=== PATIENT | male | born 1940 | race Caucasian/White ===

== ENCOUNTER 2018-06-23 12:09 | Inpatient (IN) | payer MEDICARE, BC ==
--- OUTSIDE RECORDS SUMMARY | 2018-06-23 12:29 | XMS REPORT | Continuity of Care Document ---
:1940 External Reference #:[id number] Author Name Arturo Brooks M.D. Address [address] [facility] [address] [place] [address] Care Team Providers Name Role Phone HCP/LW on file Primary Care Physician Unavailable Payers Type Date Identification Numbers Payment Provider Subscriber Effective: Policy Number: [id number] [facility] Isaías Rodriguez 2014 Services PayID: [id number] [address] [place] [address] Policy Number: [id number] [place] Isaías Rodriguez PayID: [id number] [address] [place] [address] Advance Directives Description No Information Available Problems Date Description Provider Status Onset: 07/26/2011 Disorder of lipid metabolism Arturo Brooks M.D. Active Onset: 07/26/2011 Impaired fasting glycaemia Arturo Brooks M.D. Active Family History Date Family Member(s) Problem(s) Comments General 1 brother of Brain tumor (Glioblastoma), 1 in MVA, 1 sister w/ CP. 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 [employer] Tobacco Use Reviewed: 10/06/17 Denies Cigarette Use Smoking Status Reviewed: 10/06/17 Denies Cigarette Use ETOH Use Occasionally consumes alcohol Tobacco Use Start: Unknown Non Smoker Exercise Exercises regularly walks 30-40min ~4x/wk; Type/Frequency stays active Allergies, Adverse Reactions, Alerts Description No Known Drug Allergies Medications Medication Date Status Form Strength Qnty SIG Indications Ordering Provider Asp 10/05/ Active Tablets 81mg 0tabs 1 Tab qd To Unknown 2017 Prevent A Stroke Tamsulosin 06/28/ Active Capsules 0.4mg 1 pill daily Aldo, HCL 2016 1/2 hour Clarence, after same MD meal each day; for enlarged prostate Shingrix 10/06/ Hx Suspension 50mcg 2units administer 2 Z00.00 Cecilia, 2017 - Rec doses as Arturo 01/14Pedro gonzalez M.D. 2018 per cdc guidelines Fish Oil 07/22/ Hx Capsules 1200mg 1 qd Cecilia, 2011 - Arturo 07/07/ Mady 2015 Flexeril 07/15/ Hx Tablets 10mg 50tabs 1/2-1 po tid 724.2 Cecilia, 2010 - prn Arturo 07/23/ Mady 2011 Hydrocodone/ 07/15/ Hx Tablets 5-325mg 60tabs 1-2 po q4h 724.2 Silcoff, Acetaminophe 2010 - prn for pain radha Morris 07/23/ Mady 2012 729.5 PT For L Leg Pain; 06/30/2010 - Hx please 729.5 Silcoff, Suspected Lumbar 06/10/2013 evaluate and Mady Morris Radiculopathy treat, instruct in hep Lotrisone 08/15/2008 - Hx Cream 45gm apply to 110.5 Benito, 07/09/2009 affected area Ellen JIM bid x up to 2 weeks. if not effective let me know Multi-Vitamins/Iro 07/26/2007 - Hx Tablets 1 PO qd malvin garcia 07/07/2015 Doxycycline 07/26/2007 - Hx Capsules 100mg 34ca 1 po q day. 084.6 tonjapack Hyclate 07/09/2009 ps please start 2 days before leaving on trip and continue for 28 days after returning. Ferrous Sulfate 11/26/2005 - Hx Tablets 325mg 120t 1 PO qd 285.9 klepack 07/26/2007 abs Flexeril 06/09/2005 - Hx Tablets 10mg 30ta 1/2-1 PO tid 724.2 [facility] 06/30/2010 bs DO Not Operate Heavy Equipment While On Meds Wrist Splint 02/22/2005 - Hx 1uni for right 782.0 Silcoff, 07/09/2009 ts hand Mady Morris dx: carpal tunnel syndrome Medications Administered in Office Medication Date Status Form Strength Qnty SIG Indications Ordering Provider H1N1 Swine Flu Administered Injection Silcoff, Vaccine 010 Mady Morris Immunizations CPT Code Status Date Vaccine Lot # [id number] Given 05/05/2018 Influenza Vaccine, Inactivated, Subunit, Adjuvanted, For Intrmusc 87893 Given 05/05/2018 Influenza Vaccine, Inactivated, Subunit, Adjuvanted, For Intrmusc 58411 Given 04/06/2017 Influenza Vaccine Split Virus Preservative Free Im Use 44677 Given 07/08/2015 Prevnar 13 [id number] 68066 Given 06/11/2013 Pneumococcal Immunization [id number] 14577 Given 06/11/2013 Adacel or Boostrix, TDaP [id number] 09278 Given 04/19/2011 Flu, Split Virus [id number] 98450 Given 07/26/2007 Zostavax [id number] 29983 Given 10/02/2006 Td Immunization 23321 Given 04/15/2005 Pneumococcal Immunization Vital Signs Date Vital Result Comment 06/19/2018 3:07pm BP Systolic 144 mmHg BP Diastolic 78 mmHg Heart Rate 71 /min 105 after ambulation Respiratory Rate 14 /min not laboured O2 % BldC Oximetry 96 % 97% after ambulation Height 68 inches 5'8" Weight 181.00 lb BMI (Body Mass Index) 27.5 kg/m2 04/12/2018 11:51am BP Systolic 108 mmHg BP Diastolic 60 mmHg Body Temperature 98.3 F 03/29/2018 11:11am BP Systolic 112 mmHg BP Diastolic 70 mmHg 03/14/2018 3:04pm BP Systolic 110 mmHg BP Diastolic 60 mmHg Weight 180.00 lb W/Shoes 10/06/2017 8:40am BP Systolic 104 mmHg BP Diastolic 56 mmHg Heart Rate 72 /min reg Respiratory Rate 12 /min not laboured Height 68.25 inches 5'8.25" Weight 181.00 lb BMI (Body Mass Index) 27.3 kg/m2 06/29/2017 10:55am BP Systolic 125 mmHg per nurse BP Diastolic 78 mmHg per nurse BP Systolic Recheck 140 mmHg R arm; 140/80 L arm BP Diastolic Recheck 74 mmHg R arm; 140/80 L arm Height 68.75 inches 5'8.75" with shoes Weight 183.00 lb with shoes BMI (Body Mass Index) 27.2 kg/m2 07/21/2016 9:49am BP Systolic 120 mmHg BP Diastolic 70 mmHg Height 68 inches 5'8" Weight 177.00 lb BMI (Body Mass Index) 26.9 kg/m2 07/08/2015 10:37am BP Systolic 118 mmHg BP Diastolic 70 mmHg Heart Rate 70 /min reg Respiratory Rate 12 /min not laboured Height 68 inches 5'8" Weight 177.00 lb BMI (Body Mass Index) 26.9 kg/m2 06/11/2013 9:44am BP Systolic 100 mmHg BP Diastolic 72 mmHg Heart Rate 68 /min reg Respiratory Rate 12 /min not laboured Height 68 inches 5'8" Weight 174.00 lb BMI (Body Mass Index) 26.5 kg/m2 07/26/2011 2:11pm BP Systolic 110 mmHg BP Diastolic 60 mmHg Heart Rate 66 /min reg Respiratory Rate 12 /min not laboured Height 68.50 inches 5'8.50" Weight 178.00 lb BMI (Body Mass Index) 26.7 kg/m2 Last Menstrual Period 0 06/30/2010 4:03pm BP Systolic 118 mmHg BP Diastolic 76 mmHg Height 68.25 inches 5'8.25" Weight 176.00 lb BMI (Body Mass Index) 26.6 kg/m2 Last Menstrual Period 0 07/09/2009 9:55am BP Systolic 118 mmHg BP Diastolic 66 mmHg Height 68.50 inches 5'8.50" Weight 180.00 lb BMI (Body Mass Index) 27.0 kg/m2 08/15/2008 5:15pm BP Systolic 100 mmHg BP Diastolic 64 mmHg Body Temperature 98.2 F Weight 175.00 lb 07/26/2007 10:23am Respiratory Rate 14 /min Height 68.6 inches 5'8.60" 07/26/2007 10:06am BP Systolic 120 mmHg BP Diastolic 70 mmHg Respiratory Rate 172 /min Height 68.6 inches 5'8.60" Weight 172.00 lb BMI (Body Mass Index) 25.7 kg/m2 11/26/2005 9:34am BP Systolic 104 mmHg BP Diastolic 62 mmHg Height 68.6 inches 5'8.60" Weight 170.50 lb BMI (Body Mass Index) 25.5 kg/m2 11/01/2005 1:21pm BP Systolic 114 mmHg BP Diastolic 58 mmHg Height 68.6 inches 5'8.60" Weight 174.00 lb BMI (Body Mass Index) 26.0 kg/m2 06/09/2005 3:13pm BP Systolic 120 mmHg BP Diastolic 76 mmHg Height 68.6 inches 5'8.60" Weight 176.00 lb BMI (Body Mass Index) 26.3 kg/m2 04/15/2005 10:35am BP Systolic 100 mmHg BP Diastolic 60 mmHg Height 68.6 inches 5'8.60" Weight 173.00 lb BMI (Body Mass Index) 25.8 kg/m2 02/22/2005 11:28am BP Systolic 100 mmHg BP Diastolic 54 mmHg Height 68.6 inches 5'8.60" Weight 171.00 lb BMI (Body Mass Index) 25.5 kg/m2 04/13/2004 3:21pm BP Systolic 110 mmHg BP Diastolic 70 mmHg Heart Rate 68 /min reg Height 68.6 inches 5'8.60" Weight 168.00 lb BMI (Body Mass Index) 25.1 kg/m2 Results Test Date Facility Test Result H/L Range Note Laboratory test 05/05/2018 [facility] PSA Diagnostic 1.452 ng/mL 0- 4.0 1 finding [phone] Laboratory test 03/30/2018 [facility] Surgical SEE RESULT 2 finding [phone] Pathology BELOW Laboratory test 03/14/2018 [facility] SEE RESULT 3 finding [phone] Pathology BELOW Laboratory test 10/06/2017 In House Hemoglobin A1c 5.3 finding CBC Auto Diff 10/03/2017 [facility] White Blood 2.9 10^3/uL Low 3.5- 10.8 4 [phone] Count Red Blood Count 3.84 10^6/uL Low 4.0-5.4 Hemoglobin 12.4 g/dL Low 14.0-18.0 Hematocrit 36 % Low 42-52 Mean Corpuscular Volume 94 fL N 80-94 Mean Corpuscular Hemoglobin 32 pg High 27-31 Mean Corpuscular HGB Conc 35 g/dL N 31-36 Red Cell Distribution Width 14 % N 10.5-15 Platelet Count 214 10^3/uL N 150-450 Mean Platelet Volume 8.5 um3 N 7.4-10.4 Abs Neutrophils 1.6 10^3/uL N 1.5-7.7 Abs Lymphocytes 0.8 10^3/uL Low 1.0-4.8 Abs Monocytes 0.4 10^3/uL N 0-0.8 Abs Eosinophils 0.1 10^3/uL N 0-0.6 Abs Basophils 0 10^3/uL N 0-0.2 Abs Nucleated RBC 0 10^3/uL Granulocyte % 56.1 % N 38-83 Lymphocyte % 26.2 % N 25-47 Monocyte % 12.9 % High 0-7 Eosinophil % 3.9 % N 0-6 Basophil % 0.9 % N 0-2 Nucleated Red Blood Cells % 0 Basic Metabolic Panel 10/03/2017 [facility] Sodium 140 mmol/L N 139- 145 [phone] Potassium 4.3 mmol/L N 3.5-5.0 Chloride 108 mmol/L N 101-111 Co2 Carbon Dioxide 28 mmol/L N 22-32 Anion Gap 4 mmol/L N 2-11 Glucose 98 mg/dL N 70-100 Blood Urea Nitrogen 19 mg/dL N 6-24 Creatinine 0.93 mg/dL N 0.67-1.17 BUN/Creatinine Ratio 20.4 High 8-20 Calcium 9.0 mg/dL N 8.6-10.3 Egfr Non- 78.8 >60 Egfr 101.3 >60 5 Laboratory test finding 07/21/2016 In House Hemoglobin A1c 5.4 Lipid Profile 07/21/2016 [facility] Triglycerides 129 mg/dL N 6 (Trig/Chol/HDL) [phone] Cholesterol 236 mg/dL N 7 HDL Cholesterol 45.9 mg/dL N 8 LDL Cholesterol 164 mg/dL N 9 Iron & Iron Binding Capacity 07/21/2016 [facility] Iron 80 g/dL N 50-212 [phone] Unsaturated Iron Binding 277 g/dL N Total Iron Binding Capacity 357 g/dL N 250-450 % Iron Saturation 22 % N 15-55 Laboratory test 07/21/2016 [facility] Ferritin 10.1 ng/mL Low 24-336 10 finding [phone] CBC Auto Diff 07/21/2016 [facility] White Blood 3.7 10^3/uL N 3.5- 10.8 [phone] Count Red Blood Count 3.95 10^6/uL Low 4.0-5.4 Hemoglobin 12.4 g/dL Low 14.0-18.0 Hematocrit 37 % Low 42-52 Mean Corpuscular Volume 93 fL N 80-94 Mean Corpuscular Hemoglobin 31 pg N 27-31 Mean Corpuscular HGB Conc 34 g/dL N 31-36 Red Cell Distribution Width 14 % N 10.5-15 Platelet Count 232 10^3/uL N 150-450 Mean Platelet Volume 8 um3 N 7.4-10.4 Abs Neutrophils 2.1 10^3/uL N 1.5-7.7 Abs Lymphocytes 1.0 10^3/uL N 1.0-4.8 Abs Monocytes 0.4 10^3/uL N 0-0.8 Abs Eosinophils 0.2 10^3/uL N 0-0.6 Abs Basophils 0 10^3/uL N 0-0.2 Abs Nucleated RBC 0 10^3/uL N Granulocyte % 57.4 % N 38-83 Lymphocyte % 27.9 % N 25-47 Monocyte % 9.5 % High 1-9 Eosinophil % 4.3 % N 0-6 Basophil % 0.9 % N 0-2 Nucleated Red Blood Cells % 0.1 N Laboratory test 08/19/2015 [facility] Surgical Pathology SEE RESULT 11 finding [phone] BELOW Laboratory test 07/08/2015 In House Hemoglobin A1c 5.5 finding Stone Analysis 03/21/2015 [facility] Kidney Stone Source Ureter N [phone] Kidney Stone 1st Constituent See Comment N 12 Kidney Stone 2nd Constituent See Comment N 13 Basic Metabolic Panel 03/19/2015 [facility] Sodium 133 mmol/L N 133- 145 [phone] Potassium 4.3 mmol/L N 3.5-5.0 Chloride 102 mmol/L N 101-111 Co2 Carbon Dioxide 27 mmol/L N 22-32 Anion Gap 4 mmol/L N 2-11 Glucose 78 mg/dL N 70-100 Blood Urea Nitrogen 18 mg/dL N 6-24 Creatinine 0.95 mg/dL N 0.67-1.17 BUN/Creatinine Ratio 18.9 N 8-20 Calcium 9.0 mg/dL N 8.6-10.3 Egfr Non- 77.5 N >60 Egfr 99.7 N >60 14 CBC Auto Diff 03/19/2015 [facility] White Blood Count 5.5 10^3/uL N 4.8-10.8 [phone] Red Blood Count 3.93 10^6/uL Low 4.0-5.4 Hemoglobin 12.5 g/dL Low 14.0-18.0 Hematocrit 37 % Low 42-52 Mean Corpuscular Volume 94 fL N 80-94 Mean Corpuscular Hemoglobin 32 pg High 27-31 Mean Corpuscular HGB Conc 34 g/dL N 31-36 Red Cell Distribution Width 14 % N 10.5-15 Platelet Count 231 10^3/uL N 150-450 Mean Platelet Volume 8 um3 N 7.4-10.4 Abs Neutrophils 3.9 10^3/uL N 1.5-7.7 Abs Lymphocytes 1.0 10^3/uL N 1.0-4.8 Abs Monocytes 0.5 10^3/uL N 0-0.8 Abs Eosinophils 0.1 10^3/uL N 0-0.6 Abs Basophils 0 10^3/uL N 0-0.2 Abs Nucleated RBC 0.01 10^3/uL N Granulocyte % 70.3 % N 38-83 Lymphocyte % 18.5 % Low 25-47 Monocyte % 9.3 % High 1-9 Eosinophil % 1.2 % N 0-6 Basophil % 0.7 % N 0-2 Nucleated Red Blood Cells % 0.1 N Laboratory test 09/05/2014 [facility] PSA Diagnostic 1.243 ng/mL N 0- 4.0 15 finding [phone] Creatinine 09/05/2014 [facility] Creatinine 0.93 mg/dL N 0.67-1.17 [phone] Egfr Non- 79.4 N >60 Egfr 102.1 N >60 16 Laboratory test 09/05/2014 [facility] Blood Urea Nitrogen 14 mg/dL N 6-24 finding [phone] Laboratory test 06/11/2013 In House Hemoglobin A1c 5.2 finding Lipid Profile 06/05/2013 [facility] Triglycerides 127 mg/dL 40-200 (Trig/Chol/HDL) [phone] Cholesterol 245 mg/dL High Less than 200 HDL Cholesterol 45 mg/dL 40-60 17 Cholesterol/HDL Ratio 5.4 Average High 1-4.44 LDL Cholesterol 174.6 High Less Than 100 18 Laboratory test finding 06/05/2013 [facility] Alt 26 U/L 14-54 [phone] TSH (Thyroid Stimulating Horm) 1.40 miu/mL 0.34-5.60 Lipid Profile 07/20/2011 [facility] Triglyceride 144 mg/dL 40-200 (Trig/Chol/HDL) [phone] Cholesterol 224 mg/dL High Less Than 200 19 High Density Lipoprotein 33 mg/dL Low 40-60 20 Cholesterol/HDL Ratio 6.79 AVERAGE High 1-4.97 Low Density Lipoprotein 162 mg/dL High Less Than 100 21 Laboratory test 07/20/2011 [facility] Glucose 106 mg/dL High 70-100 finding [phone] Laboratory test 08/17/2010 [facility] PSA,Diagnostic 0.61 NG/ML 0-4 finding [phone] CBC With 07/30/2009 [facility] White Blood 3.8 CUMM Low 4.8-10.8 Electronic Diff [phone] Count Red Cell Count 4.18 CUMM Low 4.6-6.2 Hemoglobin 13.9 g/dL Low 14.0-18.0 Hematocrit 40 % Low 42-52 Mean Corpuscular Volume 96 um3 High 80-94 Mean Corpuscular Hemoglob 33 pg High 27-31 Mean Corpuscular HGB Cone 35 g/dL 32-36 Redcell Distribution WDTH 13 % 10.5-15 Platelet Count 215 CUMM 150-450 Mean Platelet Volume 8.0 um3 7.4-10.4 Gran % 57.2 % 38-83 Lymph % 30.9 % 25-47 Mononuclear % 8.9 % 1-9 Eosinophil % 2.5 % 0-6 Basophil % 0.5 % 0-2 Abs Lymphs 1.2 1.0-4.8 Abs Mononuclear 0.3 0-0.8 Absolute Neutrophil Count 2.2 1.5-7.7 Abs Eosinophils 0.1 0-0.6 Abs Basophils 0 0-0.2 Basic Metabolic Panel 07/30/2009 [facility] Sodium 138 mmol/L 135- 145 [phone] Potassium 4.1 mmol/L 3.5-5.0 Chloride 105 mmol/L 101-111 Co2 (Carbon Dioxide) 31.0 mmol/L 22-32 Anion Gap 2.0 mmol/L 2-11 22 Glucose 78 mg/dL 70-100 23 BUN 14 mg/dL 6-24 Creatinine 0.90 mg/dL 0.50-1.40 One Over Creatinine 1.10 BUN/Creatinine Ratio 15.6 8-20 Calcium 9.1 mg/dL 8.1-9.9 24 eGFR Non- 88.9 > 60 eGFR 107.6 > 60 25 Laboratory test 11/29/2008 [facility] PSA,Diagnostic 0.55 NG/ML 0-4 26 finding [phone] CBC With Manual 08/16/2008 [facility] White Blood Count 6.4 CUMM 4.8 -10.8 Diff [phone] Red Cell Count 4.36 CUMM Low 4.6-6.2 Hemoglobin 14.1 g/dL 14.0-18.0 Hematocrit 41 % Low 42-52 Mean Corpuscular Volume 93 um3 80-94 Mean Corpuscular Hemoglob 33 pg High 27-31 Mean Corpuscular HGB Cone 35 g/dL 32-36 Redcell Distribution WDTH 12 % 10.5-15 Platelet Count 305 CUMM 150-450 Mean Platelet Volume 7.4 um3 7.4-10.4 Polysegmented Neutrophil 64 % 38-83 Lymphocyte 23 % Low 25-47 Monocyte 11 % 0-13 Eosenophil 1 % 0-6 Atypical Lymph 1 % 0-6 Absolute Neutrophil Count 4.0 RBC Morphology NORMAL Lipid Profile 08/16/2008 [facility] Triglyceride 92 mg/dL 40-200 (Trig/Chol/HDL) [phone] Cholesterol 229 mg/dL High Less Than 200 27 High Density Lipoprotein 40 mg/dL 40-60 28 Cholesterol/HDL Ratio 5.73 AVERAGE High 1-4.97 Low Density Lipoprotein 171 mg/dL High Less Than 100 29 Comp Metabolic Panel 08/16/2008 [facility] Sodium 139 mmol/L 135- 145 [phone] Potassium 4.4 mmol/L 3.5-5.0 Chloride 105 mmol/L 101-111 Co2 (Carbon Dioxide) 27.0 mmol/L 22-32 Anion Gap 7.0 mmol/L 2-11 30 Glucose 90 mg/dL 70-100 31 BUN 16 mg/dL 6-24 Creatinine 0.90 mg/dL 0.50-1.40 One Over Creatinine 1.10 BUN/Creatinine Ratio 17.8 8-20 Calcium 9.0 mg/dL 8.1-9.9 32 Total Protein 6.9 GM/DL 6.2-8.1 Albumin 3.5 GM/DL 3.2-5.2 Globulin 3.4 GM/DL 2-4 Albumin/Globulin Ratio 1.0 1-3 Bilirubin Total 1.0 mg/dL 0.4-1.5 Alkaline Phosphatase 70 U/L 39-117 Alt (SGPT) 15 U/L Low 17-63 Ast (Sgot) 19 U/L 12-42 Laboratory test 11/10/2007 [facility] PSA,Diagnostic 0.57 NG/ML 0-4 33, 34 finding [phone] CBC With Manual Diff 07/26/2007 [facility] RBC Morphology NORMAL [phone] White Blood Count 3.3 CUMM Low 4.8-10.8 Absolute Neutrophil Count 1.7 Hematocrit 42 % 42-52 Hemoglobin 14.7 g/dL 14.0-18.0 Eosenophil 3 % 0-6 Lymphocyte 37 % 5-47 Mean Corpuscular HGB Cone 35 g/dL 32-36 Mean Corpuscular Hemoglob 33 pg High 27-31 Mean Corpuscular Volume 94 um3 80-94 Monocyte 7 % 0-13 Mean Platelet Volume 7.9 um3 7.4-10.4 Platelet Count 230 CUMM 150-450 Polysegmented Neutrophil 53 % 38-83 Red Cell Count 4.46 CUMM Low 4.6-6.2 Redcell Distribution WDTH 13 % 10.5-15 Laboratory test finding 07/26/2007 [facility] Ferritin 29 NG/ML 24- 336 [phone] Iron & Iron Binding 07/26/2007 [facility] Iron Total 149 g/dL 45- 182 Capacity [phone] Unsaturated Iron Binding 137 g/dL Total Iron Binding Capacity 286 g/dL 250-450 % Iron Saturation 52 % 15-55 Lipid Profile 07/26/2007 [facility] Cholesterol/HDL 5.90 High 1-4.97 (Trig/Chol/HDL) [phone] Ratio AVERAGE Cholesterol 236 mg/dL High Less Than 200 35 Triglyceride 84 mg/dL 40-200 High Density Lipoprotein 40 mg/dL 40-60 Low Density Lipoprotein 179 mg/dL High Less Than 100 36 Comp Metabolic Panel 07/26/2007 [facility] One Over Creatinine 0.90 [phone] Anion Gap 4.0 mmol/L 2-11 37 Albumin/Globulin Ratio 1.4 1-3 Albumin 3.8 GM/DL 3.2-5.2 Alkaline Phosphatase 59 U/L 39-117 Alt (SGPT) 19 U/L 17-63 Ast (Sgot) 22 U/L 12-42 BUN 12 mg/dL 6-24 Calcium 8.8 mg/dL 8.7-10.2 Chloride 101 mmol/L 101-111 Co2 (Carbon Dioxide) 28.0 mmol/L 22-32 Globulin 2.8 GM/DL 2-4 Glucose 100 mg/dL 70-105 Potassium 4.0 mmol/L 3.5-5.0 Sodium 133 mmol/L Low 135-145 Bilirubin Total 0.9 mg/dL 0.4-1.5 Total Protein 6.6 GM/DL 6.2-8.1 BUN/Creatinine Ratio 10.9 8-20 Creatinine 1.1 mg/dL 0.5-1.4 Laboratory test 10/20/2006 [facility] PSA Screening 0.48 NG/ML 0.01- 4.0 38 finding [phone] Laboratory test 11/24/2005 [facility] TSH Thyroid 1.03 finding Stimulating Horm Ferritin 11 Low 20-380 Vitamin B12 695 Folate Serum 19.1 Iron And Tibc Serum 11/24/2005 [facility] Iron 204 High 40-190 Iron Binding Capacity (Tibc) 349 CBC With Electronic 11/15/2005 [facility] White Blood 3.6 CUMM Low 4.8-10.8 39 Diff [phone] Count Abs Basophils 0 0-0.2 Abs Eosinophils 0.1 0-0.6 Absolute Neutrophil Count 2.2 1.5-7.7 Abs Lymphs 1.0 1.0-4.8 Abs Mononuclear 0.3 0-0.8 Basophil % 0.7 % 0-2 Hematocrit 39 % Low 42-52 Hemoglobin 13.4 g/dL Low 14.0-18.0 Eosinophil % 2.8 % 0-6 Gran % 60.3 % 38-83 Lymph % 27.2 % 20-45 Mean Corpuscular HGB Cone 35 g/dL 32-36 Mean Corpuscular Hemoglob 31 pg 27-31 Mean Corpuscular Volume 91 um3 80-94 Mean Platelet Volume 8.2 um3 7.4-10.4 Mononuclear % 9.0 % 1-9 Platelet Count 315 CUMM 150-450 Red Cell Count 4.28 CUMM Low 4.6-6.2 Redcell Distribution WDTH 14 % 10.5-15 Basic Metabolic Panel 11/15/2005 [facility] Over Creatinine 1.11 [phone] Anion Gap 4.0 mmol/L 2-11 40 BUN 14 mg/dL 6-24 Calcium 9.1 mg/dL 8.7-10.2 Chloride 107 mmol/L 101-111 Co2 (Carbon Dioxide) 27.0 mmol/L 22-32 Glucose 80 mg/dL 70-105 Potassium 5.2 mmol/L High 3.5-5.0 Sodium 138 mmol/L 135-145 BUN/Creatinine Ratio 15.6 8-20 Creatinine 0.9 mg/dL 0.5-1.4 Laboratory test 11/15/2005 [facility] PSA Screening 0.5 NG/ML 0-4 41 finding [phone] Basic Metabolic 11/01/2005 [facility]. Glucose 86 mg/dL 76- 115 Panel LABORATORY [phone] BUN 21 mg/dL 5-23 Creatinine 1.0 mg/dL 0.5-1.4 BUN/Creat 21.0 Sodium 136 mEq/L 136-145 Potassium 3.8 mEq/L 3.5-5.1 Chloride 106 mEq/L 98-107 Carbon Dioxide 28 mEq/L 21-32 Anion Gap 6 mEq/L Low 8-16 Calcium 8.5 mg/dL 8.5-10.1 Laboratory test finding 11/01/2005 In House Urine Microscopic NOT ORDERED Inhouse Ua Inhouse 11/01/2005 In House Ua Glucose NEG Ua Bilirubin NEG Ua Ketones NEG Ua Specific [place] 1.030 Ua Blood NEG Ua PH LARGE Ua Protein NEG Ua Urobilinogen NEG Ua Nitrite NEG Ua Leukocytes NEG 1 Serum levels of PSA measured using the Alessia Kristie DXI Hybritech immunoassay should not be interpreted as absolute evidence of the presence or absence of disease. The PSA value should be used in conjunction with other pertinent clinical diagnostic procedures. The values obtained with different assay methods or kits cannot be used interchangeably. 2 SEE RESULT BELOW Name: ISAÍAS RODRIGUEZ [place] : [address]: Arturo Brooks MD Acct: [id number] Unit: [id number] AGE: 77 Location: [facility] Re03/30/18 SEX: M Status: REG REF SPEC: [id number] MADISYN: 03/30/18-1026 [facility] DR: Arturo Brooks MD REQ: [id number] RECD: 03/30/18-9130 STATUS: SOUT _ ORDERED: LEVEL 4 COMMENTS: [id number] FINAL DIAGNOSIS Skin, left shoulder, excision: -- Prior biopsy site related changes. -- Diffuse actinic change. -- No residual squamous cell carcinoma identified. CLINICAL HISTORY Biopsy done 03/14/2018 on left shoulder lesion positive for squamous cell carcinoma PRE-OPERATIVE DIAGNOSIS Squamous cell carcinoma of skin of other part; stitch at 9:00 lesion approximately 1 cm. GROSS DESCRIPTION The specimen is received in formalin labeled, Left Shoulder, and consists of a 4.4 x 1.5 cm mottled carmen wrinkled hairbearing skin ellipse excised to a depth of 0.4 cm with a central carmen-white ill-defined focally furrowed lesion measuring up to 0.9 cm. There is a suture attached to one long axis which as per the accompanying requisition designates 9:00. The specimen is inked as follows: 6:00 half black, 12:00 half blue and 9:00 tip green, serially sectioned from 9:00 to 3:00 and entirely submitted in cassettes A through E to include ellipse ends in cassette A. Signed by and Reported on: Orlando Aggarwal MD 07/21 1206 END OF REPORT DEPARTMENT OF PATHOLOGY, [address] [place] [address] Orlando Aggarwal M.D. Director [facility] # [id number] 3 SEE RESULT BELOW Name: ISAÍAS RODRIGUEZ : [address]: Arturo Brooks MD Acct: [id number] Unit: [id number] AGE: 77 Location: [facility] Re03/15/18 SEX: M Status: REG REF SPEC: [id number] MADISYN: 03/14/18-[address]: Arturo Brooks MD REQ: [id number] RECD: 03/15/18 STATUS: SOUT _ ORDERED: LEVEL 4 COMMENTS: [id number] FINAL DIAGNOSIS Skin, left shoulder, biopsy: -- Invasive squamous cell carcinoma, well-differentiated. -- Lesional cells extend to the biopsy base. CLINICAL HISTORY Present 5-6 weeks and growing, shirts irritate it when rubbing, no bleeding PRE-OPERATIVE DIAGNOSIS Flesh toned, smooth rounded soft papular lesion approximately 1 cm in diameter. Within it there are several black spots GROSS DESCRIPTION The specimen is received in formalin labeled, Skin Left Shoulder, and consists of a 1.0 x 0.9 by up to 0.3 cm carmen-pink ovoid skin fragment focally surfaced by yellow brown scabrous scale. The specimen is inked, serially sectioned and entirely submitted in one cassette. Signed by and Reported on: Ct Meyer MD 03/16/18 1441 END OF REPORT DEPARTMENT OF PATHOLOGY, [address] [place] [address] Orlando Aggarwal M.D. Director [facility] # [id number] 4 FASTING 12 HOUR 5 Because ethnic data is not always readily available, this report includes an eGFR for both -Americans and non- Americans. The National Kidney Disease Education Program (NKDEP) does not endorse the use of the MDRD equation for patients that are not between the ages of 18 and 70, are , have extremes of body size, muscle mass, or nutritional status, or are non- or non-. According to the National Kidney Foundation, irrespective of diagnosis, the stage of the disease is based on the level of kidney function: Stage Description GFR(mL/min/1.73 m(2)) 1 Kidney damage with normal or decreased GFR 90 2 Kidney damage with mild decrease in GFR 60-89 3 Moderate decrease in GFR 30-59 4 Severe decrease in GFR 15-29 5 Kidney failure <15 (or dialysis) 6 Desirable <150 Borderline high 150-199 High 200-499 Very High >500 7 Desirable <200 Borderline high 200-239 High >239 8 Low <40 Desirable: 40-60 High: >60 9 Desirable: <100 mg/dL Near Optimal: 100-129 mg/dL Borderline High: 130-159 mg/dL High: 160-189 mg/dL Very High: >189 mg/dL 10 FASTING 12 HOUR 11 SEE RESULT BELOW Name: ISAÍAS RODRIGUEZ : [address]: Catalino Millan MD Acct: [id number] Unit: [id number] AGE: 75 Location: [facility] Re08/19/15 SEX: M Status: REG REF SPEC: [id number] MADISYN: 08/19/15-0828 [facility] DR: Catalino Millan MD REQ: [id number] RECD: 08/19/15-1254 STATUS: HA SHEPHERD DR: Arturo Brooks MD _ ORDERED: LEVEL IV/2 FINAL DIAGNOSIS 1. Colon, rectum at 16 cm, biopsy: -- Tubular adenoma. -- No high grade dysplasia or malignancy. 2. Colon, rectum at 10 cm, biopsy: -- Tubular adenoma. -- No high grade dysplasia or malignancy. CLINICAL HISTORY Negative colonoscopy 1998 and 2005; screening POST-OPERATIVE DIAGNOSIS Colonoscopy to cecum, very good prep - 4 x 5 mm sessile polyp at 16 cm, cold snare excision. 2 x 2 mm sessile polyp at 10 cm cold snare excision. Otherwise negative colonoscopy; 2 polyps removed, recall 5 years. GROSS DESCRIPTION 1. The specimen is received in formalin labeled, Rectal Polyp at 16 cm, and consists of a 0.6 x 0.5 x 0.3 cm carmen-pink polypoid soft tissue fragment, which is inked, bisected and submitted entirely in one cassette. 2. The specimen is received in formalin labeled, Rectal Polyp at 10 cm, and consists of a 0.4 x 0.3 x 0.2 cm carmen-pink irregular soft tissue fragment, which is submitted entirely in one cassette. Signed (signature on file) Ct Meyer MD [id number] END OF REPORT * ML=Testing performed at Main Lab DEPARTMENT OF PATHOLOGY, [address] [place] [address] Orlando Aggarwal M.D. Director [facility] # [id number] 12 RESULT: 90% Calcium oxalate monohydrate 13 RESULT: 10% Calcium phosphate (apatite) Test Performed by: [place] [address] [employer] Analyst: Haroldo Ruiz II, M.D., Ph.D. 14 Because ethnic data is not always readily available, this report includes an eGFR for both -Americans and non- Americans. The National Kidney Disease Education Program (NKDEP) does not endorse the use of the MDRD equation for patients that are not between the ages of 18 and 70, are , have extremes of body size, muscle mass, or nutritional status, or are non- or non-. According to the National Kidney Foundation, irrespective of diagnosis, the stage of the disease is based on the level of kidney function: Stage Description GFR(mL/min/1.73 m(2)) 1 Kidney damage with normal or decreased GFR 90 2 Kidney damage with mild decrease in GFR 60-89 3 Moderate decrease in GFR 30-59 4 Severe decrease in GFR 15-29 5 Kidney failure <15 (or dialysis) 15 Serum levels of PSA measured using the [employer] MapMyID DXI Hybritech immunoassay should not be interpreted as absolute evidence of the presence or absence of disease. The PSA value should be used in conjunction with other pertinent clinical diagnostic procedures. The values obtained with different assay methods or kits cannot be used interchangeably. 16 Because ethnic data is not always readily available, this report includes an eGFR for both -Americans and non- Americans. The National Kidney Disease Education Program (NKDEP) does not endorse the use of the MDRD equation for patients that are not between the ages of 18 and 70, are , have extremes of body size, muscle mass, or nutritional status, or are non- or non-. According to the National Kidney Foundation, irrespective of diagnosis, the stage of the disease is based on the level of kidney function: Stage Description GFR(mL/min/1.73 m(2)) 1 Kidney damage with normal or decreased GFR 90 2 Kidney damage with mild decrease in GFR 60-89 3 Moderate decrease in GFR 30-59 4 Severe decrease in GFR 15-29 5 Kidney failure <15 (or dialysis) 17 HDL Interpretation: Undesirable: High Risk: Less than 40 mg/dL Desirable: Low Risk: Greater than 60 mg/dL 18 LDL Interpretation: Low Risk Optimal Level: LDL Less than 100 mg/dL Near or Above Optimal: LDL 100-129 mg/dL Borderline High Risk: LDL 130-159 mg/dL High Risk: LDL 160-189 mg/dL Very High Risk: LDL Greater than 189 mg/dL 19 CHOLESTEROL INTERPRETATION: Desirable: Less than 200 MG/DL Borderline-High Risk: 200-239 MG/DL High-Risk: 240 MG/DL and over 20 HDL INTERPRETATION: Undesirable: High Risk: Less than 40 MG/DL Desirable: Low Risk: Greater than 60 MG/DL 21 LDL INTERPRETATION: Low Risk Optimal Level: LDL Less than 100 MG/DL Near or Above Optimal: LDL 100-129 MG/DL Borderline High Risk: LDL 130-159 MG/DL High Risk: LDL 160-189 MG/DL Very High Risk: LDL Greater than 189 MG/DL 22 Anion gap measurement may be of limited value in the presence of any alkalosis, especially in a combined acid base disorder. . 23 Note change in reference range as of 02/22/08. The change was based on recommendations from the [employer]. 24 Please note change in reference range effective 07 . 25 Because ethnic data is not always readily available, this report includes an eGFR for both -Americans and non- Americans. The National Kidney Disease Education Program (NKDEP) does not endorse the use of the MDRD equation for patients that are not between the ages of 18 and 70, are , have extremes of body size, muscle mass, or nutritional status, or are non- or non-. According to the National Kidney Foundation, irrespective of diagnosis, the stage of the disease is based on the level of kidney function: Stage Description GFR(mL/min/1.73 m(2)) 1 Kidney damage with normal or decreased GFR 90 2 Kidney damage with mild decrease in GFR 60-89 3 Moderate decrease in GFR 30-59 4 Severe decrease in GFR 15-29 5 Kidney failure <15 (or dialysis) 26 * SERUM LEVELS OF PSA MEASURED USING THE [employer] ACCESS HYBRITECH IMMUNOASSAY SHOULD NOT BE INTERPRETED ABSOLUTE EVIDENCE OF THE PRESENCE OR ABSENCE OF DISEASE. THE PSA VALUE SHOULD BE USED IN CONJUNCTION WITH OTHER PERTINENT CLINICAL DIAGNOSTIC PROCEDURES. A PSA value in the range of 0.1 to 0.6 ng/ml is indeterminate if being used as an indicator of recurrent or residual disease. . 27 CHOLESTEROL INTERPRETATION: Desirable: Less than 200 MG/DL Borderline-High Risk: 200-239 MG/DL High-Risk: 240 MG/DL and over 28 HDL INTERPRETATION: Undesirable: High Risk: Less than 40 MG/DL Desirable: Low Risk: Greater than 60 MG/DL 29 LDL INTERPRETATION: Low Risk Optimal Level: LDL Less than 100 MG/DL Near or Above Optimal: LDL 100-129 MG/DL Borderline High Risk: LDL 130-159 MG/DL High Risk: LDL 160-189 MG/DL Very High Risk: LDL Greater than 189 MG/DL 30 Anion gap measurement may be of limited value in the presence of any alkalosis, especially in a combined acid base disorder. . 31 Note change in reference range as of 02/22/08. The change was based on recommendations from the [employer]. 32 Please note change in reference range effective 07 . 33 PATIENT MAY HAVE RESULTS PER DOCTOR'S AUTHORIZATION. Questions regarding this report should be directed to your doctor. 34 * SERUM LEVELS OF PSA MEASURED USING THE [employer] ACCESS HYBRITECH IMMUNOASSAY SHOULD NOT BE INTERPRETED ABSOLUTE EVIDENCE OF THE PRESENCE OR ABSENCE OF DISEASE. THE PSA VALUE SHOULD BE USED IN CONJUNCTION WITH OTHER PERTINENT CLINICAL DIAGNOSTIC PROCEDURES. A PSA value in the range of 0.1 to 0.6 ng/ml is indeterminate if being used as an indicator of recurrent or residual disease. . 35 Classification: Borderline High . 36 CALCULATED LDL APPROXIMATES THE VALUE OF A DIRECT LDL MEASUREMENT. Classification: High . 37 Anion gap measurement may be of limited value in the presence of any alkalosis, especially in a combined acid base disorder. . 38 * SERUM LEVELS OF PSA MEASURED USING THE [employer] K[employer]STIE ACCESS HYBRITECH IMMUNOASSAY SHOULD NOT BE INTERPRETED ABSOLUTE EVIDENCE OF THE PRESENCE OR ABSENCE OF DISEASE. THE PSA VALUE SHOULD BE USED IN CONJUNCTION WITH OTHER PERTINENT CLINICAL DIAGNOSTIC PROCEDURES. A PSA value in the range of 0.1 to 0.6 ng/ml is indeterminate if being used as an indicator of recurrent or residual disease. . 39 SDS 11/17/05 11/15/05, results here, labs were ordered by Dr outside of office. SL 40 Anion gap measurement may be of limited value in the presence of any alkalosis, especially in a combined acid base disorder. . 41 * SERUM LEVELS OF PSA MEASURED USING THE [employer] KRISTIE ACCESS HYBRITECH IMMUNOASSAY SHOULD NOT BE INTERPRETED ABSOLUTE EVIDENCE OF THE PRESENCE OR ABSENCE OF DISEASE. THE PSA VALUE SHOULD BE USED IN CONJUNCTION WITH OTHER PERTINENT CLINICAL DIAGNOSTIC PROCEDURES. A PSA value in the range of 0.1 to 0.6 ng/ml is indeterminate if being used as an indicator of recurrent or residual disease. . Procedures Date Code Description Status 06/19/2018 35170 Oximetry, Multiple Determinations (Eg, During Exercise) Completed 06/19/2018 78909 Electrocardiogram Complete Completed 03/29/2018 01195 Shave Skin Lesion > 2CM Trunk/Arm/Leg Completed 03/14/2018 06270 Biopsy Skin Lesion Single Completed 10/06/2017 59136 Destruction Of Skin Lesions Up To 14 Flat Completed Warts/Molluscum Contag 08/04/2015 [id number] Colonoscopy Completed 03/04/2009 0 Payment Completed Encounters Type Date Location Provider Dx Diagnosis Office Visit 06/19/2018 Main Office Arturo Brooks, R06.00 Dyspnea, unspecified 3:00p M.D. 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 uncertain behavior of skin R23.8 Other skin changes Office Visit 06/29/2017 10:30a Main Office Arturo Brooks, D64.9 Anemia, unspecified M.D. R03.0 Elevated blood-pressure reading, w/o diagnosis of htn Office Visit 07/21/2016 9:45a Main Office Arturo Brooks, Z00.00 Encntr for M.D. general adult medical exam w/o abnormal findings R73.01 Impaired fasting glucose E78.00 Pure hypercholesterolemia, unspecified Office Visit 07/08/2015 10:30a Main Office Arturo Brooks, R73.01 Impaired fasting M.D. glucose Z00.00 Encntr for general adult medical exam w/o abnormal findings D64.9 Anemia, unspecified Z23 Encounter for immunization Z41.8 Encntr for oth proc for purpose oth than [facility] L72.3 Sebaceous cyst Office Visit 06/11/2013 9:45a Main Office Arturo Brooks, V70.0 Examination General M.D. 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 790.21 Impaired Fasting Glucose V76.44 Screening For Malig Jani Prostate Office Visit 06/30/2010 Main Office Cecilia, 729.5 Pain In Limb 4:00p Mady Morris Office Visit 07/09/2009 Main Office Cecilia, 272.0 Hypercholesterolemia Pure 9:45a Mady Morris 702.19 Seborrheic Keratosis Other V70.0 Examination General Medical Routine AT Health Care Facility V04.81 Need For Prophylactic Vaccination & Inoculation/Influenza Office Visit 08/15/2008 4:30p Main Office Ellen Oliver 110.5 Dermatophytosis Body MD 272.0 Hypercholesterolemia Pure Office Visit 07/26/2007 10:00a Main Office malvin 285.9 Anemia Unspec 272.0 Hypercholesterolemia Pure 084.6 Malaria Unspec V05.8 Single Disease Spec Other Vaccination & Inoculation V07.2 Prophylactic Immunotherapy Office Visit 11/26/2005 9:30a Main Office klepack 285.9 Anemia Unspec Office Visit 11/01/2005 1:15p Main Office klepack 599.7 Hematuria 789.03 Pain Abdominal Right Lower Quadrant Office Visit 06/09/2005 3:00p Main Office klepack 272.0 Hypercholesterolemia Pure 724.2 Lumbago Office Visit 04/15/2005 10:30a Main Office klepack V76.44 Screening For Malig Jani Prostate 272.0 Hypercholesterolemia Pure 281.9 Anemia Deficiency Unspec V70.0 Examination General Medical Routine AT [facility] 238.2 Neoplasm Uncertain Skin V03.82 Streptococcus Pneumoniae Vaccination Spec Other Office Visit 02/22/2005 Main Office Cherylekrishan, 782.0 Skin Sensation 11:00a Mady Morris Disturbance Office Visit 04/13/2004 Main Office Cecilia, 272.0 Hypercholesterolemia Pure 3:30p Mady Morris 110.1 Dermatophytosis Nail V76.44 Screening For Malig Jani Prostate Plan of Treatment Future Appointment(s):10/09/2018 9:45 am - Arturo Brooks M.D. at Main [facility]706/19/2018 - Arturo Brooks M.D.R06.00 Dyspnea, unspecifiedComments: Slowly progressive dyspnea, now to the point of being rather debilitating. CXR unremarkable. EKG shows some subtle ST changes. He needs stress testing and cardio eval. Advised to refrain from strenuousactivity until getting advised further post stress testing.Referral:Ori Barkley MD, Cardiology/Phys/Osteo
--- OUTSIDE RECORDS SUMMARY | 2018-06-23 12:29 | XMS REPORT | Continuity of Care Document ---
:1940 External Reference #:[id number] Author Name Amy Tilley Care Team Providers Name Role Phone HCP/LW on file Primary Care Physician Unavailable Payers Type Date Identification Numbers Payment Provider Subscriber Effective: Policy Number: [id number] [facility] Isaías Rodriguez 2014 Services PayID: [id number] [address] [place] [address] Policy Number: [id number] [employer] Isaías Rodriguez PayID: [id number] [address] [place] [address] Advance Directives Description No Information Available Problems [...] Description Comments Sex Unknown Marital Status 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 [employer] Tobacco Use Reviewed: 10/06/17 Denies Cigarette Use [...] Hx Suspension 50mcg 2units administer 2 Z00.00 Cecilia 2017 - Rec doses as Arturo 01/14/ Mady gonzalez 2017 per cdc guidelines Fish Oil 07/22/ Hx Capsules 1200mg 1 qd Cecilia 2011 - Arturo 07/07/ Mady 2015 Flexeril 07/15/ Hx Tablets 10mg 50tabs 1/2-1 po tid 724.2 Cecilia, 2010 - prn Arturo 07/23/ Mady 2011 Hydrocodone/ 07/15/ Hx Tablets 5-325mg 60tabs 1-2 po q4h 724.2 Silcoff, Acetaminophe 2010 - prn for pain radha Morris 07/23/ Mady 2011 729.5 PT For L Leg Pain; 06/30/2010 - Hx please 729.5 Silcoff, Suspected Lumbar 06/10/2013 evaluate and Mady Morris Radiculopathy treat, instruct in hep Lotrisone 08/15/2008 - Hx Cream 45gm apply to 110.5 Benito 07/09/2009 affected area Ellen JIM bid x up to 2 weeks. if not effective let me know Multi-Vitamins/Iro 07/26/2007 - Hx Tablets 1 PO qd tonjapadaniel n 07/07/2015 Doxycycline 07/26/2007 - Hx Capsules 100mg 34ca 1 po q day. 084.6 tonjapadaniel Hyclate 07/09/2009 ps please start 2 days before leaving on trip and continue for 28 days after returning. Ferrous Sulfate 11/26/2005 - Hx Tablets 325mg 120t 1 PO qd 285.9 klepack 07/26/2007 abs Flexeril 06/09/2005 - Hx Tablets 10mg 30ta 1/2-1 PO tid 724.2 klepack 06/30/2010 bs DO Not Operate Heavy Equipment While On Meds Wrist Splint 02/22/2005 - Hx 1uni for right 782.0 Silcoff, 07/09/2009 ts hand Mady Morris dx: carpal tunnel syndrome Medications Administered in Office Medication Date Status Form Strength Qnty SIG Indications Ordering Provider H1N1 Swine Flu Administered Injection Silcoff, Vaccine 010 Mady Morris Immunizations CPT Code Status Date Vaccine Lot # [id number] Given 05/05/2018 Influenza Vaccine, Inactivated, Subunit, Adjuvanted, For Intrmusc 17759 Given 05/05/2018 Influenza Vaccine, Inactivated, Subunit, Adjuvanted, For Intrmusc 97051 Given 04/06/2017 Influenza Vaccine Split Virus Preservative Free [place] Use 79071 Given 07/08/2015 Prevnar 13 [id number] 38923 Given 06/11/2013 Pneumococcal Immunization [id number] 92921 Given 06/11/2013 Adacel or Boostrix, TDaP [id number] 79086 Given 04/19/2011 Flu, Split Virus [id number] 44521 Given 07/26/2007 Zostavax [id number] 13176 Given 10/02/2006 Td Immunization 17163 Given 04/15/2005 Pneumococcal Immunization Vital Signs Date [...] Date Facility Test Result H/L Range Note CBC Auto Diff 06/19/2018 [facility] White Blood 4.7 10^3/uL N 3.5- 10.8 [phone] Count Red Blood Count 4.38 10^6/uL N 4.00-5.40 Hemoglobin 14.4 g/dL N 14.0-18.0 Hematocrit 42 % N 42-52 Mean Corpuscular Volume 95 fL High 80-94 Mean Corpuscular Hemoglobin 33 pg High 27-31 Mean Corpuscular HGB Conc 35 g/dL N 31-36 Red Cell Distribution Width 13 % N 10.5-15 Platelet Count 229 10^3/uL N 150-450 Mean Platelet Volume 8.2 fL N 7.4-10.4 Abs Neutrophils 3.3 10^3/uL N 1.5-7.7 Abs Lymphocytes 0.9 10^3/uL Low 1.0-4.8 Abs Monocytes 0.5 10^3/uL N 0-0.8 Abs Eosinophils 0.1 10^3/uL N 0-0.6 Abs Basophils 0 10^3/uL N 0-0.2 Abs Nucleated RBC 0 10^3/uL Granulocyte % 69.2 % Lymphocyte % 18.2 % Monocyte % 9.8 % Eosinophil % 1.9 % Basophil % 0.9 % Nucleated Red Blood Cells % 0 Laboratory test 06/19/2018 [facility] B-Type Natriuretic 53 pg/mL <= 100 finding [phone] Peptide BNP Comp Metabolic 06/19/2018 [facility] Sodium 138 mmol/L N 135-145 Panel [phone] Potassium 4.4 mmol/L N 3.5-5.0 Chloride 106 mmol/L N 101-111 Co2 Carbon Dioxide 28 mmol/L N 22-32 Anion Gap 4 mmol/L N 2-11 Glucose 97 mg/dL N 70-100 Blood Urea Nitrogen 15 mg/dL N 6-24 Creatinine 0.86 mg/dL N 0.67-1.17 BUN/Creatinine Ratio 17.4 N 8-20 Calcium 9.5 mg/dL N 8.6-10.3 Total Protein 7.1 g/dL N 6.4-8.9 Albumin 4.0 g/dL N 3.2-5.2 Globulin 3.1 g/dL N 2-4 Albumin/Globulin Ratio 1.3 N 1-3 Total Bilirubin 0.40 mg/dL N 0.2-1.0 Alkaline Phosphatase 75 U/L N 34-104 Alt 20 U/L N 7-52 Ast 20 U/L N 13-39 Egfr Non- 86.0 >60 Egfr 104.1 >60 1 Laboratory test 06/19/2018 [facility] TSH (Thyroid 1.49 mcIU/mL N 0.34-5.60 finding [phone] Stim Horm) Laboratory test 05/05/2018 [facility] PSA Diagnostic 1.452 ng/mL 0- 4.0 2 finding [phone] Laboratory test 03/30/2018 [facility] Surgical SEE RESULT 3 finding [phone] Pathology BELOW Laboratory test 03/14/2018 [facility] Surgical SEE RESULT 4 finding [phone] Pathology BELOW Laboratory test 10/06/2017 In House Hemoglobin A1c 5.3 finding CBC Auto Diff 10/03/2017 [facility] White Blood 2.9 10^3/uL Low 3.5- 10.8 5 [phone] Count Red Blood Count 3.84 10^6/uL Low [...] Cells % 0 Basic Metabolic Panel 10/03/2017 [facility] Sodium 140 mmol/L N 139- 145 [phone] Potassium 4.3 mmol/L N 3.5-5.0 Chloride 108 mmol/L N 101-111 Co2 Carbon Dioxide 28 mmol/L N 22-32 Anion Gap 4 mmol/L N 2-11 Glucose 98 mg/dL N 70-100 Blood Urea Nitrogen 19 mg/dL N 6-24 Creatinine 0.93 mg/dL N 0.67-1.17 BUN/Creatinine Ratio 20.4 High 8-20 Calcium 9.0 mg/dL N 8.6-10.3 Egfr Non- 78.8 >60 Egfr 101.3 >60 6 Laboratory test finding 07/21/2016 In House Hemoglobin A1c 5.4 Lipid Profile 07/21/2016 [facility] Triglycerides 129 mg/dL N 7 (Trig/Chol/HDL) [phone] Cholesterol 236 mg/dL N 8 HDL Cholesterol 45.9 mg/dL N 9 LDL Cholesterol 164 mg/dL N 10 Iron & Iron Binding Capacity 07/21/2016 [facility] Iron 80 g/dL N 50-212 [phone] Unsaturated Iron Binding 277 g/dL N Total Iron Binding Capacity 357 g/dL N 250-450 % Iron Saturation 22 % N 15-55 Laboratory test 07/21/2016 [facility] Ferritin 10.1 ng/mL Low 24-336 11 finding [phone] CBC Auto Diff 07/21/2016 [facility] White Blood 3.7 10^3/uL N 3.5- 10.8 [phone] Count Red Blood Count 3.95 10^6/uL Low [...] Cells % 0.1 N Laboratory test 08/19/2015 [facility] Surgical Pathology SEE RESULT 12 finding [phone] BELOW Laboratory test 07/08/2015 In House Hemoglobin A1c 5.5 finding Stone Analysis 03/21/2015 [facility] Kidney Stone Source Ureter N [phone] Kidney Stone 1st Constituent See Comment N 13 Kidney Stone 2nd Constituent See Comment N 14 Basic Metabolic Panel 03/19/2015 [facility] Sodium 133 mmol/L N 133- 145 [phone] Potassium 4.3 mmol/L N 3.5-5.0 Chloride 102 mmol/L N 101-111 Co2 Carbon Dioxide 27 mmol/L N 22-32 Anion Gap 4 mmol/L N 2-11 Glucose 78 mg/dL N 70-100 Blood Urea Nitrogen 18 mg/dL N 6-24 Creatinine 0.95 mg/dL N 0.67-1.17 BUN/Creatinine Ratio 18.9 N 8-20 Calcium 9.0 mg/dL N 8.6-10.3 Egfr Non- 77.5 N >60 Egfr 99.7 N >60 15 CBC Auto Diff 03/19/2015 [facility] White Blood Count 5.5 10^3/uL N 4.8-10.8 [phone] Red Blood Count 3.93 10^6/uL Low 4.0-5.4 [...] Cells % 0.1 N Laboratory test 09/05/2014 [facility] PSA Diagnostic 1.243 ng/mL N 0- 4.0 16 finding [phone] Creatinine 09/05/2014 [facility] Creatinine 0.93 mg/dL N 0.67-1.17 [phone] Egfr Non- 79.4 N >60 Egfr 102.1 N >60 17 Laboratory test 09/05/2014 [facility] Blood Urea Nitrogen 14 mg/dL N 6-24 finding [phone] Laboratory test 06/11/2013 In House Hemoglobin A1c 5.2 finding Lipid Profile 06/05/2013 [facility] Triglycerides 127 mg/dL 40-200 (Trig/Chol/HDL) [phone] Cholesterol 245 mg/dL High Less than 200 HDL Cholesterol 45 mg/dL 40-60 18 Cholesterol/HDL Ratio 5.4 Average High 1-4.44 LDL Cholesterol 174.6 High Less Than 100 19 Laboratory test finding 06/05/2013 [facility] Alt 26 U/L 14-54 [phone] TSH (Thyroid Stimulating Horm) 1.40 miu/mL 0.34-5.60 Lipid Profile 07/20/2011 [facility] Triglyceride 144 mg/dL 40-200 (Trig/Chol/HDL) [phone] Cholesterol 224 mg/dL High Less Than 200 20 High Density Lipoprotein 33 mg/dL Low 40-60 21 Cholesterol/HDL Ratio 6.79 AVERAGE High 1-4.97 Low Density Lipoprotein 162 mg/dL High Less Than 100 22 Laboratory test 07/20/2011 [facility] Glucose 106 mg/dL High 70-100 finding [phone] Laboratory test 08/17/2010 [facility] PSA,Diagnostic 0.61 NG/ML 0-4 finding [phone] CBC With 07/30/2009 [facility] White Blood 3.8 CUMM Low 4.8-10.8 Electronic Diff [phone] Count Red Cell Count 4.18 CUMM Low [...] Basophils 0 0-0.2 Basic Metabolic Panel 07/30/2009 [facility] Sodium 138 mmol/L 135- 145 [phone] Potassium 4.1 mmol/L 3.5-5.0 Chloride 105 mmol/L 101-111 Co2 (Carbon Dioxide) 31.0 mmol/L 22-32 Anion Gap 2.0 mmol/L 2-11 23 Glucose 78 mg/dL 70-100 24 BUN 14 mg/dL 6-24 Creatinine 0.90 mg/dL 0.50-1.40 One Over Creatinine 1.10 BUN/Creatinine Ratio 15.6 8-20 Calcium 9.1 mg/dL 8.1-9.9 25 eGFR Non- 88.9 > 60 eGFR 107.6 > 60 26 Laboratory test 11/29/2008 [facility] PSA,Diagnostic 0.55 NG/ML 0-4 27 finding [phone] CBC With Manual 08/16/2008 [facility] White Blood Count 6.4 CUMM 4.8 -10.8 Diff [phone] Red Cell Count 4.36 CUMM Low 4.6-6.2 [...] 4.0 RBC Morphology NORMAL Lipid Profile 08/16/2008 [facility] Triglyceride 92 mg/dL 40-200 (Trig/Chol/HDL) [phone] Cholesterol 229 mg/dL High Less Than 200 28 High Density Lipoprotein 40 mg/dL 40-60 29 Cholesterol/HDL Ratio 5.73 AVERAGE High 1-4.97 Low Density Lipoprotein 171 mg/dL High Less Than 100 30 Comp Metabolic Panel 08/16/2008 [facility] Sodium 139 mmol/L 135- 145 [phone] Potassium 4.4 mmol/L 3.5-5.0 Chloride 105 mmol/L 101-111 Co2 (Carbon Dioxide) 27.0 mmol/L 22-32 Anion Gap 7.0 mmol/L 2-11 31 Glucose 90 mg/dL 70-100 32 BUN 16 mg/dL 6-24 Creatinine 0.90 mg/dL 0.50-1.40 One Over Creatinine 1.10 BUN/Creatinine Ratio 17.8 8-20 Calcium 9.0 mg/dL 8.1-9.9 33 Total Protein 6.9 GM/DL 6.2-8.1 Albumin 3.5 GM/DL 3.2-5.2 Globulin 3.4 GM/DL 2-4 Albumin/Globulin Ratio 1.0 1-3 Bilirubin Total 1.0 mg/dL 0.4-1.5 Alkaline Phosphatase 70 U/L 39-117 Alt (SGPT) 15 U/L Low 17-63 Ast (Sgot) 19 U/L 12-42 Laboratory test 11/10/2007 [facility] PSA,Diagnostic 0.57 NG/ML 0-4 34, 35 finding [phone] CBC With Manual Diff 07/26/2007 [facility] RBC Morphology NORMAL [phone] White Blood Count 3.3 CUMM Low 4.8-10.8 [...] 13 % 10.5-15 Laboratory test finding 07/26/2007 [facility] Ferritin 29 NG/ML 24- 336 [phone] Iron & Iron Binding 07/26/2007 [facility] Iron Total 149 g/dL 45- 182 Capacity [phone] Unsaturated Iron Binding 137 g/dL Total Iron Binding Capacity 286 g/dL 250-450 % Iron Saturation 52 % 15-55 Lipid Profile 07/26/2007 [facility] Cholesterol/HDL 5.90 High 1-4.97 (Trig/Chol/HDL) [phone] Ratio AVERAGE Cholesterol 236 mg/dL High Less Than 200 36 Triglyceride 84 mg/dL 40-200 High Density Lipoprotein 40 mg/dL 40-60 Low Density Lipoprotein 179 mg/dL High Less Than 100 37 Comp Metabolic Panel 07/26/2007 [facility] One Over Creatinine 0.90 [phone] Anion Gap 4.0 mmol/L 2-11 38 Albumin/Globulin Ratio 1.4 1-3 Albumin 3.8 GM/DL [...] Creatinine 1.1 mg/dL 0.5-1.4 Laboratory test 10/20/2006 [facility] PSA Screening 0.48 NG/ML 0.01- 4.0 39 finding [phone] Laboratory test 11/24/2005 [facility] TSH Thyroid 1.03 finding Stimulating Horm Ferritin 11 Low 20-380 Vitamin B12 695 Folate Serum 19.1 Iron And Tibc Serum 11/24/2005 [facility] Iron 204 High 40-190 Iron Binding Capacity (Tibc) 349 Laboratory test 11/15/2005 [facility] PSA Screening 0.5 NG/ML 0-4 40, 41 finding [phone] Basic Metabolic 11/15/2005 [facility] One Over 1.11 Panel [phone] Creatinine Anion Gap 4.0 mmol/L 2-11 42 BUN 14 mg/dL 6-24 Calcium 9.1 mg/dL 8.7-10.2 Chloride 107 mmol/L 101-111 Co2 (Carbon Dioxide) 27.0 mmol/L 22-32 Glucose 80 mg/dL 70-105 Potassium 5.2 mmol/L High 3.5-5.0 Sodium 138 mmol/L 135-145 BUN/Creatinine Ratio 15.6 8-20 Creatinine 0.9 mg/dL 0.5-1.4 CBC With Electronic 11/15/2005 [facility] White Blood 3.6 CUMM Low 4.8-10.8 Diff [phone] Count Abs Basophils 0 0-0.2 Abs Eosinophils [...] WDTH 14 % 10.5-15 Basic Metabolic Panel 11/01/2005 [facility]. Glucose 86 mg/dL 76-115 LABORATORY [phone] BUN 21 mg/dL 5-23 Creatinine 1.0 mg/dL [...] Bilirubin NEG Ua Ketones NEG Ua Specific [place] 1.030 Ua Blood NEG Ua PH LARGE Ua Protein NEG Ua Urobilinogen NEG Ua Nitrite NEG Ua Leukocytes NEG 1 Because ethnic data is not always readily [...] 15-29 5 Kidney failure <15 (or dialysis) 2 Serum levels of PSA measured using the [employer] DXI Hybritech immunoassay should not be interpreted as absolute evidence of the presence or absence of disease. The PSA value should be used in conjunction with other pertinent clinical diagnostic procedures. The values obtained with different assay methods or kits cannot be used interchangeably. 3 SEE RESULT BELOW Name: ISAÍAS RODRIGUEZ : [address]: Arturo Brooks MD Acct: [id number] Unit: [id number] AGE: 77 Location: [facility] Re03/30/18 SEX: M Status: REG REF SPEC: [id number] MADISYN: 03/30/18-[address] [facility] DR: Arturo Brooks MD REQ: [id number] RECD: 03/30/18-1349 STATUS: SOUT _ ORDERED: LEVEL 4 COMMENTS: [id number] FINAL DIAGNOSIS Skin, left shoulder, excision: -- [...] 1206 END OF REPORT DEPARTMENT OF PATHOLOGY, [address] [place] [address] Orlando Aggarwal M.D. Director [facility] # [id number] 4 SEE RESULT BELOW Name: ISAÍAS RODRIGUEZ : [address]: Arturo Brooks MD Acct: [id number] Unit: [id number] AGE: 77 Location: [facility] Re03/15/18 SEX: M Status: REG REF SPEC: [id number] MADISYN: 03/14/18-[address] [facility] DR: Arturo Brooks MD REQ: [id number] RECD: 03/15/18 STATUS: SOUT _ ORDERED: LEVEL 4 COMMENTS: [id number] FINAL DIAGNOSIS Skin, left shoulder, biopsy: -- [...] 1441 END OF REPORT DEPARTMENT OF PATHOLOGY, [address] [place] [address] Orlando Aggarwal M.D. Director [facility] # [id number] 5 FASTING 12 HOUR 6 Because ethnic data is not always readily [...] 15-29 5 Kidney failure <15 (or dialysis) 7 Desirable <150 Borderline high 150-199 High 200-499 Very High >500 8 Desirable <200 Borderline high 200-239 High >239 9 Low <40 Desirable: 40-60 High: >60 10 Desirable: <100 mg/dL Near Optimal: 100-129 mg/dL Borderline High: 130-159 mg/dL High: 160-189 mg/dL Very High: >189 mg/dL 11 FASTING 12 HOUR 12 SEE RESULT BELOW Name: ISAÍAS RODRIGUEZ : [address]: Catalino Millan MD Acct: [id number] Unit: [id number] AGE: 75 Location: [facility] Re08/19/15 SEX: M Status: REG REF SPEC: [id number] MADISYN: 08/19/150828 [facility] DR: Catalino Millan MD REQ: [id number] RECD: 08/19/15-9065 STATUS: HA SHEPHERD DR: Arturo Brooks MD [...] performed at Main Lab DEPARTMENT OF PATHOLOGY, [address] [place] [address] Orlando Aggarwal M.D. Director [place] # [id number] 13 RESULT: 90% Calcium oxalate monohydrate 14 RESULT: 10% Calcium phosphate (apatite) Test Performed by: [address] [address] Insurance Follow Up Specialist: Haroldo Ruiz II, M.D., Ph.D. 15 Because ethnic data is not always readily [...] 15-29 5 Kidney failure <15 (or dialysis) 16 Serum levels of PSA measured using the [employer] DXI Hybritech immunoassay should not be interpreted as absolute evidence of the presence or absence of disease. The PSA value should be used in conjunction with other pertinent clinical diagnostic procedures. The values obtained with different assay methods or kits cannot be used interchangeably. 17 Because ethnic data is not always readily [...] 15-29 5 Kidney failure <15 (or dialysis) 18 HDL Interpretation: Undesirable: High Risk: Less than 40 mg/dL Desirable: Low Risk: Greater than 60 mg/dL 19 LDL Interpretation: Low Risk Optimal Level: LDL Less than 100 mg/dL Near or Above Optimal: LDL 100-129 mg/dL Borderline High Risk: LDL 130-159 mg/dL High Risk: LDL 160-189 mg/dL Very High Risk: LDL Greater than 189 mg/dL 20 CHOLESTEROL INTERPRETATION: Desirable: Less than 200 MG/DL Borderline-High Risk: 200-239 MG/DL High-Risk: 240 MG/DL and over 21 HDL INTERPRETATION: Undesirable: High Risk: Less than 40 MG/DL Desirable: Low Risk: Greater than 60 MG/DL 22 LDL INTERPRETATION: Low Risk Optimal Level: LDL Less than 100 MG/DL Near or Above Optimal: LDL 100-129 MG/DL Borderline High Risk: LDL 130-159 MG/DL High Risk: LDL 160-189 MG/DL Very High Risk: LDL Greater than 189 MG/DL 23 Anion gap measurement may be of limited value in the presence of any alkalosis, especially in a combined acid base disorder. . 24 Note change in reference range as of 02/22/08. The change was based on recommendations from the [place] [employer]. 25 Please note change in reference range effective 07 . 26 Because ethnic data is not always readily [...] 15-29 5 Kidney failure <15 (or dialysis) 27 * SERUM LEVELS OF PSA MEASURED USING THE [employer] [place] ACCESS HYBRITECH IMMUNOASSAY SHOULD NOT BE INTERPRETED ABSOLUTE EVIDENCE OF THE PRESENCE OR ABSENCE OF DISEASE. THE PSA VALUE SHOULD BE USED IN CONJUNCTION WITH OTHER PERTINENT CLINICAL DIAGNOSTIC PROCEDURES. A PSA value in the range of 0.1 to 0.6 ng/ml is indeterminate if being used as an indicator of recurrent or residual disease. . 28 CHOLESTEROL INTERPRETATION: Desirable: Less than 200 MG/DL Borderline-High Risk: 200-239 MG/DL High-Risk: 240 MG/DL and over 29 HDL INTERPRETATION: Undesirable: High Risk: Less than 40 MG/DL Desirable: Low Risk: Greater than 60 MG/DL 30 LDL INTERPRETATION: Low Risk Optimal Level: LDL Less than 100 MG/DL Near or Above Optimal: LDL 100-129 MG/DL Borderline High Risk: LDL 130-159 MG/DL High Risk: LDL 160-189 MG/DL Very High Risk: LDL Greater than 189 MG/DL 31 Anion gap measurement may be of limited value in the presence of any alkalosis, especially in a combined acid base disorder. . 32 Note change in reference range as of 02/22/08. The change was based on recommendations from the [place] [employer]. 33 Please note change in reference range effective 07 . 34 PATIENT MAY HAVE RESULTS PER DOCTOR'S AUTHORIZATION. Questions regarding this report should be directed to your doctor. 35 * SERUM LEVELS OF PSA MEASURED USING THE [employer] [place] ACCESS HYBRITECH IMMUNOASSAY SHOULD NOT BE INTERPRETED ABSOLUTE EVIDENCE OF THE PRESENCE OR ABSENCE OF DISEASE. THE PSA VALUE SHOULD BE USED IN CONJUNCTION WITH OTHER PERTINENT CLINICAL DIAGNOSTIC PROCEDURES. A PSA value in the range of 0.1 to 0.6 ng/ml is indeterminate if being used as an indicator of recurrent or residual disease. . 36 Classification: Borderline High . 37 CALCULATED LDL APPROXIMATES THE VALUE OF A DIRECT LDL MEASUREMENT. Classification: High . 38 Anion gap measurement may be of limited value in the presence of any alkalosis, especially in a combined acid base disorder. . 39 * SERUM LEVELS OF PSA MEASURED USING THE ALESSIA Tiltap ACCESS HYBRITECH IMMUNOASSAY SHOULD NOT BE INTERPRETED ABSOLUTE EVIDENCE OF THE PRESENCE OR ABSENCE OF DISEASE. THE PSA VALUE SHOULD BE USED IN CONJUNCTION WITH OTHER PERTINENT CLINICAL DIAGNOSTIC PROCEDURES. A PSA value in the range of 0.1 to 0.6 ng/ml is indeterminate if being used as an indicator of recurrent or residual disease. . 40 SDS 11/17/05 11/15/05, results here, labs were ordered by Dr outside of office. SL 41 * SERUM LEVELS OF PSA MEASURED USING THE ALESSIA Tiltap ACCESS HYBRITECH IMMUNOASSAY SHOULD NOT BE INTERPRETED ABSOLUTE EVIDENCE OF THE PRESENCE OR ABSENCE OF DISEASE. THE PSA VALUE SHOULD BE USED IN CONJUNCTION WITH OTHER PERTINENT CLINICAL DIAGNOSTIC PROCEDURES. A PSA value in the range of 0.1 to 0.6 ng/ml is indeterminate if being used as an indicator of recurrent or residual disease. . 42 Anion gap measurement may be of limited value in the presence of any alkalosis, especially in a combined acid base disorder. . Procedures Date Code Description Status 06/19/2018 92027 Oximetry, Multiple Determinations (Eg, During Exercise) Completed 06/19/2018 32210 Electrocardiogram Complete Completed 03/29/2018 69747 Shave Skin Lesion > 2CM Trunk/Arm/Leg Completed 03/14/2018 89802 Biopsy Skin Lesion Single Completed 10/06/2017 79609 Destruction Of Skin Lesions Up To 14 Flat Completed Warts/Molluscum Contag 08/04/2015 20423365 Colonoscopy Completed 03/04/2009 0 Payment Completed Encounters [...] oth proc for purpose oth than [facility] L72.3 Sebaceous cyst Office Visit 06/11/2013 9:45a Main Office Arturo Brooks, V70.0 Examination General M.D. 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 790.21 Impaired Fasting Glucose V76.44 Screening For Malig Jani Prostate Office Visit 06/30/2010 Main Office Cecilia 729.5 Pain In Limb 4:00p Mady Morris Office Visit 07/09/2009 Main Office Cecilia 272.0 Hypercholesterolemia Pure 9:45a Mady Morris 702.19 Seborrheic Keratosis Other V70.0 Examination General Medical Routine AT Health Care Facility V04.81 Need For Prophylactic Vaccination & Inoculation/Influenza Office Visit 08/15/2008 4:30p Main Office Ellen Oliver 110.5 Dermatophytosis Body MD 272.0 Hypercholesterolemia Pure Office Visit 07/26/2007 10:00a Main Office klepack 285.9 Anemia Unspec 272.0 Hypercholesterolemia Pure 084.6 [...] Unspec V70.0 Examination General Medical Routine AT Health Care Facility 238.2 Neoplasm Uncertain Skin V03.82 Streptococcus Pneumoniae Vaccination Spec Other Office Visit 02/22/2005 Main Office Cecilia, 782.0 Skin Sensation 11:00a Mady Morris Disturbance Office Visit 04/13/2004 Main Office Cecilia, 272.0 Hypercholesterolemia Pure 3:30p Mady Morris 110.1 Dermatophytosis Nail V76.44 Screening For Malig Jani Prostate Plan of Treatment Future Appointment(s):10/09/2018 9:45 am - Arturo Brooks M.D. at Main [id number]/19/2018 - Arturo Brooks M.D.R06.00 Dyspnea, unspecifiedComments: Slowly progressive dyspnea, now to the point of being rather debilitating. CXR unremarkable. EKG shows some subtle ST changes. He needs stress testing and cardio eval. Advised to refrain from strenuousactivity until getting advised further post stress testing.Referral:Ori Barkley MD, Cardiology/Phys/Osteo
[2018-06-23 13:02] LABS: ABS Basophils 0 10^3/ul (0-0.2); ABS Eosinophils 0.1 10^3/ul (0-0.6); ABS Monocytes 0.4 10^3/ul (0-0.8); ABS Neutrophils 3.1 10^3/ul (1.5-7.7); ABS Nucleated RBC 0 10^3/ul; Eosinophil % 1.9 %; Hematocrit 44 % (42-52); Hemoglobin 14.9 g/dl (14.0-18.0); Lymphocyte % 21.9 %; Mean Corpuscular HGB Conc 34 g/dl (31-36); Mean Corpuscular Hemoglobin 32 pg (27-31); Mean Corpuscular Volume 95 fL (80-94); Mean Platelet Volume 7.6 fL (7.4-10.4); Nucleated Red Blood Cells % 0.1; Platelet Count 249 10^3/ul (150-450); Red Cell Distribution Width 13 % (10.5-15); White Blood Count 4.6 10^3/ul (3.5-10.8)
[2018-06-23 13:22] LABS: Albumin 4.1 g/dL (3.2-5.2); Albumin/Globulin Ratio 1.2 (1-3); BUN/Creatinine Ratio 16.7 (8-20); Calcium 9.8 mg/dL (8.6-10.3); EGFR Non-African American 75.8 (>60); Globulin 3.4 g/dL (2-4); Potassium 4.3 mmol/L (3.5-5.0); Total Bilirubin 0.5 mg/dL (0.2-1.0); Total Protein 7.5 g/dL (6.4-8.9)
--- NOTE | 2018-06-23 13:28 | ED ---
Shortness of Breath - HPI Summary HPI Summary: This patient is a 78 year old M presenting to [facility] with a chief complaint of SOB upon exertion and ambulation since a few weeks ago. He states he usually experiences the SOB and then once he rests he returns to normal. He had an episode of SOB last night and he had some chest pain as well as pain in his neck and right shoulder down his arm. He contacted his PCP and he recommended he come here. This episode lasted five minutes and then resolved. He denies light-headedness, a FHx of heart disease, and hemoptysis. Patient states he has gained a little bit of weight, approximately 4 pounds. The patient is not currently experiencing symptoms. - History of Current Complaint Chief Complaint: EDShortnessOfBreath Time Seen by Provider: 06/23/18 12:44 Hx Obtained From: Patient Onset/Duration: Lasting Weeks Current Severity: None Dyspnea At: Exertion Associated Signs & Symptoms: Chest Pain Unrelated to Cough - Allergy/Home Medications Allergies/Adverse Reactions: Allergies Allergy/AdvReac Type Severity Reaction Status Date / Time No Known Allergies Allergy Verified 03/21/15 10:36 Home Medications: Home Medications Aspirin EC TAB* [Ecotrin EC Low Dose 81 MG*] 81 mg PO DAILY 06/23/18 [History Confirmed 06/23/18] Tamsulosin CAP* [Flomax CAP*] 0.4 mg PO DAILY 06/23/18 [History Confirmed ] PMH/Surg Hx/FS Hx/Imm Hx History: Reports: Hx Kidney Stones - BOTH RIGHT AND LEFT Sensory History: Reports: Hx Contacts or Glasses - GLASSES Denies: Hx Hearing Aid Opthamlomology History: Reports: Hx Contacts or Glasses - GLASSES Infectious Disease History: No Infectious Disease History: Denies: Traveled Outside the [place] in Last 30 Days - Family History Known Family History: Negative: Cardiac Disease, Hypertension - Social History Alcohol Use: Weekly Alcohol Amount: 3-4/WEEK Substance Use Type: Reports: None Smoking Status (MU): Never Smoked Tobacco Review of Systems Negative: Fever, Chills Negative: Erythema Positive: Chest Pain - Episode last night has since resolved Positive: Shortness Of Breath - Upon exertion. Negative: Cough Negative: Abdominal Pain, Vomiting, Nausea Negative: dysuria, hematuria Negative: Myalgia, Edema Negative: Rash Neurological: Other - Neg: Dizziness All Other Systems Reviewed And Are Negative: No Physical Exam - Summary Physical Exam Summary: Constitutional: Well-developed, Well-nourished, Alert. (-) Distressed Skin: Warm, Dry HENT: Normocephalic; Atraumatic Eyes: Conjunctiva normal Neck: Musculoskeletal ROM normal neck. (-) JVD, (-) Stridor, (-) Tracheal deviation Cardio: Rhythm regular, rate normal, Heart sounds normal; Intact distal pulses; The pedal pulses are 2+ and symmetric. Radial pulses are 2+ and symmetric. (-) Murmur Pulmonary/Chest wall: Effort normal. (-) Respiratory distress, (-) Wheezes, (-) Rales Abd: Soft, (-) epigastric tenderness, (-) Distension, (-) Guarding, (-) Rebound Musculoskeletal: (-) Edema Lymph: (-) Cervical adenopathy Neuro: Alert, Oriented x3 Psych: Mood and affect Normal Triage Information Reviewed: Yes Vital Signs On Initial Exam: Initial Vitals Temp Pulse Resp BP Pulse Ox 97.8 F 72 20 142/78 97 06/23/18 12:17 06/23/18 12:17 06/23/18 12:17 06/23/18 12:17 06/23/18 12:17 Vital Signs Reviewed: Yes Diagnostics - Vital Signs Vital Signs Temp Pulse Resp BP Pulse Ox 06/23/18 12:17 97.8 F 72 20 142/78 97 - Laboratory Lab Results: Lab Results 06/23/18 Range/Units 12:50 WBC 4.6 (3.5-10.8) 10^3/ul RBC 4.60 (4.00-5.40) 10^6/ul Hgb 14.9 (14.0-18.0) g/dl Hct 44 (42-52) % MCV 95 H (80-94) fL MCH 32 H (27-31) pg MCHC 34 (31-36) g/dl RDW 13 (10.5-15) % Plt Count 249 (150-450) 10^3/ul MPV 7.6 (7.4-10.4) fL Neut % (Auto) 67.5 % Lymph % (Auto) 21.9 % Tama % (Auto) 7.9 % Eos % (Auto) 1.9 % Baso % (Auto) 0.8 % Absolute Neuts (auto) 3.1 (1.5-7.7) 10^3/ul Absolute Lymphs (auto) 1.0 (1.0-4.8) 10^3/ul Absolute Monos (auto) 0.4 (0-0.8) 10^3/ul Absolute Eos (auto) 0.1 (0-0.6) 10^3/ul Absolute Basos (auto) 0 (0-0.2) 10^3/ul Absolute Nucleated RBC 0 10^3/ul Nucleated RBC % 0.1 Result Diagrams: 06/23/18 12:50 06/23/18 12:50 Lab Statement: Any lab studies that have been ordered have been reviewed, and results considered in the medical decision making process. - Radiology CXR Radiology Interpretation Completed By: Radiologist - No active cardiopulmonary disease. ED Provider has reviewed this report. - EKG 1300 Cardiac Rate: NL - 67 BPM EKG Rhythm: Sinus Rhythm ST Segment: Normal Course/Dx - Course Course Of Treatment: This patient is a 78 year old M presenting to [facility] with a chief complaint of SOB upon exertion and ambulation since a few weeks ago.He had an episode last night that was accompanied by chest pain radiating to his neck and right arm. The CXR was unremarkable for cardiopulmonary disease. Labs were remarkable for elevated troponin levels. Therefore, the patient will be admitted. Dr. Hernandez, Hospitalist, accepted this patient. This plan was discussed with the patient and the patient was agreeable with this plan. - Diagnoses Provider Diagnoses: Elevated troponin, Shortness of breath on exertion, Chest pain - Physician Notifications Discussed Care of Patient With: Lana Hernandez - Hospitalist Time Discussed With Above Provider: 14:10 Instructed by Provider To: Admit As Inpatient Discharge - Sign-Out/Discharge Documenting (check all that apply): Patient Departure - Admit - Discharge Plan Condition: Stable Disposition: ADMITTED TO [facility] Referrals: Arturo Brooks MD [Primary Care Provider] - - Attestation Statements Document Initiated by Scribe: Yes Documenting Scribe: Ted Anton Provider For Whom Scribe is Documenting (Include Credential): Michael Calvin MD Scribe Attestation: Ted Potts, scribed for Michael Calvin MD on 12/21/18 at 1405. Status of Scribe Document: Ready
[2018-06-23 15:05] LABS: Magnesium 1.9 mg/dL (1.9-2.7)
[2018-06-23] MEDS ORDERED: Metoprolol Tartrate TAB* 25 MG PO ONE (15:25)
[2018-06-23] MEDS ORDERED: Metoprolol Tartrate IV* 1 MG/ML 5 ML VIAL IV ONE ×2 (15:36→16:32)
[2018-06-23] MEDS ORDERED: Enoxaparin(*) 80 MG/0.8 ML SYR SUBCUT ONE (15:37)
[2018-06-23] MEDS ORDERED: Nitroglycerin 2% OINT* 1 GM PAK TOPICAL ONE (15:40)
[2018-06-23 15:58] LABS: HDL Cholesterol 49.8 mg/dL
[2018-06-23 16:23] LABS: TSH (Thyroid Stimulating Horm) 1.67 mcIU/mL (0.34-5.60)
[2018-06-23] MEDS ORDERED: Enoxaparin(*) 30 MG/0.3 ML SYR IV ONE (16:35)
--- NOTE | 2018-06-23 18:39 | HP ---
CC: Dr. Brooks * HISTORY AND PHYSICAL: DATE OF ADMISSION: 06/23/18 PROVIDER: Theo Man NP. PRIMARY CARE PROVIDER: Dr. Brooks. ATTENDING PHYSICIAN WHILE IN THE HOSPITAL: Dr. Lana Hernandez * (dictated by Theo Man NP). CONSULTING WEATHERIZATION COORDINATOR: Dr. Denny. CHIEF COMPLAINT: 1. Shortness of breath. 2. Chest pain. HISTORY OF PRESENT ILLNESS: Mr. Boateng is a healthy 78-year-old male with past medical history significant for kidney stones, who presented to the emergency room with complaints of shortness of breath and chest pain. The patient reports that over the past 3 weeks he has had progressively worsening shortness of breath. He states that when walking up a flight of stairs, he becomes extremely short of breath, and if he did 2 flights of stairs, he would have to sit down to recover from his short of breath. He reports that recently approximately 2 weeks ago he went for a walk with his which he normally does, and while walking with his , he became extremely short of breath and had to slow down and rest due to his increased shortness of breath. He reports that the shortness of breath feels like he has been running and he has to stop to catch his breath. Again, the patient reports that during last evening approximately midnight, he woke up from sleep with shortness of breath and chest pressure in the center of his chest. He reports that it radiated to both shoulders and down to bilateral elbows. He states that it also was associated with heartburn. At that time, he took a full-strength aspirin and antacids and reports that the chest pain subsided approximately 10 minutes later. Again, this morning, he went to get his newspaper which is a short distance, and just walking the short distance, he became extremely short of breath and had to rest to catch his breath after getting the newspaper. He denies any fever, chills, recent illnesses, or sick contacts. He does report chest pain that is associated with exertional shortness of breath. He denies any cough or hemoptysis. He does report exertional shortness of breath. Denies any nausea, vomiting, or diarrhea. Denies any abdominal pain. Denies any gross hematuria or dysuria. Denies any focal weakness or sensory loss. Denies visual complaints, dysphagia, arthralgias, myalgias, rashes, lesions, or any psychosis or anxiety. While in the emergency room, the patient had routine lab work drawn. He was found to have initial troponin that was positive at 0.04. Given his presenting symptoms, we were asked to see and evaluate him to rule out acute coronary syndrome. PAST MEDICAL HISTORY: Significant for kidney stones. HOME MEDICATIONS: 1. Tamsulosin 0.4 mg p.o. daily. 2. Aspirin 81 mg p.o. daily. ALLERGIES: No known drug allergies. FAMILY HISTORY: Mother with a history of heart disease in her 90s. Brother with a history of diabetes in his 60s and brother with a history of brain tumor. SOCIAL HISTORY: He denies any tobacco use ever. Does report he drinks wine 2 to 3 times per week. Denies any drug use. He is retired. He lives with his . Surrogate decision maker in the event he is unable to make his own decisions is his . He is a full code. REVIEW OF SYSTEMS: Constitutional: There are no fevers, no unintended weight loss. He does report over the fall he has gained approximately 4 pounds. He does report chest pain associated with shortness of breath last evening which has subsided. Denies any edema. Denies any cough or hemoptysis. He does report exertional shortness of breath that has become progressively worse over the past 3 weeks. Denies any nausea, vomiting, diarrhea, or abdominal pain. Denies any diaphoresis. Denies any hematuria or dysuria. Denies any focal weakness or sensory loss. Denies any visual complaints. Denies any dysphagia, arthralgias, myalgias, rashes, lesions, psychosis or anxiety. PHYSICAL EXAMINATION GENERAL: At this time, Mr. Boateng is a 78-year-old male, he appears comfortable , resting on the stretcher in the emergency room. HEENT: Head is atraumatic, normocephalic. Eyes: EOMs are intact. Sclerae are anicteric and not pale. Oral mucosa appeared to be moist. NECK: Supple. LUNGS: Clear to auscultation bilaterally. No wheezes, rales, or rhonchi. CARDIAC: S1, S2. Regular rate and rhythm. ABDOMEN: Soft and nontender. Bowel sounds are present x4. EXTREMITIES: Pedal pulses are +2 bilaterally. There is no edema noted. He has got 5/5 strength in all 4 extremities. NEUROLOGIC: He is awake, alert, and oriented x3. Speech is clear. Thought process is intact. There are no gross focal deficits. SKIN: Intact. DIAGNOSTIC STUDIES/LAB DATA: WBCs are 4.6, RBCs 4.60, hemoglobin 14.9, hematocrit was 44, platelet count was 249. Sodium 138, potassium 4.3, chloride 106, carbon dioxide was 29, anion gap was 3, BUN was 16, creatinine 0.96, glucose is 107, lactic acid 0.7, calcium 9.8, magnesium 1.9. AST was 19, ALT was 19, alkaline phosphatase of 75. Troponin was 0.04. EKG shows T-wave inversions in III and aVF and peak T-waves in V2 and V3 at a rate of 67, sinus rhythm. Chest x-ray shows no acute cardiopulmonary disease. ASSESSMENT AND PLAN: Mr. Boateng is a 78-year-old male with past medical history significant for kidney stones, who presented to the emergency room with complaints of progressively worsening shortness of breath with exertion and chest pain. Due to the concern of acute coronary syndrome, we were asked to see and evaluate the patient for admission. He will be admitted inpatient for: 1. Chest pain. At this time, the patient's troponin is positive. We will continue to trend his troponin. I suspect this could be related to acute coronary syndrome. We will place him on Lovenox 1 mg/kg subcu. He will have Lopressor 5 mg IV. Start oral Metoprolol as well. I will place him on half an inch of nitro paste. I will also start atorvastatin 40 mg p.o. daily. He has taken a full strength aspirin today at midnight. I will continue with aspirin 81 mg p.o. daily tomorrow, starting tomorrow. I have ordered a transthoracic echocardiogram, which is currently pending. I have also contacted Dr. Denny who will see this patient in consultation. At this time, the patient is chest pain free and is not acutely short of breath at this time. We will continue to monitor his symptoms. We will repeat an EKG and continued to trend his troponins. Monitor on telemetry. 2. Shortness of breath. I suspect his shortness of breath could be related to acute coronary syndrome. He does have a D-dimer pending at this time. If his D - dimer is positive, we will get a CT of the chest to rule out pulmonary embolism. His portable chest x-ray does not show any acute infectious process or congestive heart failure. So at this time, I suspect that his shortness of breath could possibly be related to acute coronary syndrome. 3. History of kidney stones. He will continue on Flomax as previously prescribed. 4. DVT prophylaxis: He will be on Lovenox subcu. 5. Diet: He will be placed on a heart-healthy diet. 6. Code status: He is a full code. TIME SPENT: Time spent on this admission was 60 minutes, greater than half that time was spent [id number] with the patient obtaining my history and physical, the other half time was spent going over my plan of care and implementing my plan of care. I have discussed with my attending Dr. Lana Hernandez, and she is in agreement with my plan. THEO MAN, PEWTER FINISHER [id number]/[facility] #: [id number] PARVEZ
[2018-06-23] MEDS: Atorvastatin* 40 MG TAB PO SCH (18:44)
[2018-06-23] MEDS: Metoprolol Tartrate TAB* 25 MG PO SCH (20:02)
--- NOTE | 2018-06-23 23:01 | CONS ---
CC: Dr. Ryne Denny; Dr. Brooks CARDIOLOGY CONSULTATION: DATE OF CONSULT: 06/23/18 CONSULTING PROVIDER: Laquita Man NP REASON FOR EVALUATION: Chest discomfort, dyspnea on exertion. 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 He said that he noticed about 6 months ago that he just felt more tired than usual, but he continued to be active. He noticed that when mowing his lawn over the summer that he would be more short of breath and gets some left shoulder achiness when he first started to mow the lawn, he would rest and it would resolve when he continued to mow the lawn. He said about 6 weeks ago, he noticed that when he was walking with his , he was getting more short of breath. He said that he used to be able to walk 2 miles and he has been gradually getting more shortness of breath with his usual walk and cutting down on the length of his walks. Over , he visited his daughter in [place] and noted he was short of breath going up stairs, he blamed it on the elevation, but said that he thought he was more short of breath than in past years. When he came home, he noted that he was getting short of breath just walking 50 feet to the mail box and back. He saw Dr. Brooks earlier this week , who suggested that he see a hand inspector and he had an appointment pending for next month. He woke at midnight last night and had chest pressure radiating to his shoulder and his elbows associated with shortness of breath. He also had an acid taste in his mouth. He took some Maalox and he said after about 10 minutes, it resolved. He also took an aspirin. He said this morning, he ran out in the rain to get the mail and was short of breath just going to the mail box and back. He called Dr. Brooks and told him about the events, was advised to come to the emergency room. He denies any chest pain or shortness of breath currently. He has had no syncope, near syncope. No palpitations, orthopnea, or PND. He says blood pressure is normal in the 115 to 120 range, but over the last month or so, he has been noted to have blood pressures in the 140s to 160s, which he thought was unusual. He also noted that sometimes when he walks, he does not feel like his heart rate goes up as high as it used to, but he has not actually objectively measured it. PAST MEDICAL HISTORY: He denies hypertension, diabetes, or tobacco use. He has a history of hyperlipidemia, which is borderline. He has a history of nephrolithiasis. He has a history of urinary frequency and is on tamsulosin. PAST SURGICAL HISTORY: He denies any past surgical history. MEDICATIONS: His outpatient medicines include: 1. Aspirin 81 mg a day. 2. Tamsulosin 0.4 mg a day. ALLERGIES: He denies any drug allergies. FAMILY HISTORY: Father at 59 with pneumonia and mother at 91. He is oldest of 10 siblings and no premature coronary disease. SOCIAL HISTORY: He is . He has 2 adult children. 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 He says he has 2 or 3 alcohol beverages a week and he drinks 1 cup of caffeinated coffee a day. REVIEW OF SYSTEMS: Review of systems x10 was negative except as above. PHYSICAL EXAM: He is a well-developed and well-nourished gentleman, in no apparent distress. Pulse of 68, blood pressure 158/92. No significant JVD. Carotids 2+ without bruits. No cervical lymphadenopathy or thyromegaly. Extraocular muscles intact. Chest was clear. No CVAT. Abdomen: Bowel sounds present, nontender. Normal pulses intact without bruits. Distal pulses intact. No edema. Motor strength 5/5 bilaterally. Deep tendon reflexes, 2/4. Alert and oriented x3. Skin turgor normal. DIAGNOSTIC STUDIES/LAB DATA: His white count of 4.6, hemoglobin of 14.9, hematocrit of 44%, platelet count 249. BUN is 16, creatinine of 0.96 Ferritin from July 2016, was low at 10.1. Troponin of 0.4. EKG from 06/23/18 at 1300 revealed sinus rhythm with inferior ST-T wave changes , ST depressions, possible ischemia. The last EKG in our system was from 2005 and these changes are new compared to that. IMPRESSION AND PLAN: My impression is that Mr. Boateng presents with progressive dyspnea on exertion, intermittent shoulder pain and chest discomfort, suspicious for acute coronary syndrome. He also has some problems with elevated blood pressures, but he believes are low heart rates with exertion, raising possibility of hypertensive heart disease and sinus node dysfunction, although more likely I think it is coronary ischemia, possibly with inferior ischemia contributing to hypertension and bradycardia. He is at increased risk given the borderline troponin and EKG changes and his progressive symptoms and rest symptoms. Therefore, I recommend the following: I discussed case with Laquita Donovan. I have recommended: 1. Heparinization, full dose. 2. Aspirin as you are doing. 3. Adding beta matilde, metoprolol 25 mg p.o. b.i.d. as well as to get his blood pressures down. 4. Would repeat his EKG and troponins. 5. Would add nitro paste half-inch to the chest wall q.6. 6. If he has recurrent chest pain, I would consider proceeding to cardiac catheterization on more urgent basis. Otherwise, we will observe him over the weekend and consider catheterization on Tuesday. 7. Would start Lipitor 40 mg a day. 8. Would consider using benzodiazepine for anxiety to try to decrease anxiety and stress, which could be contributing to ischemia. [id number]/[facility] #: [id number] PARVEZ
[2018-06-24] MEDS: Enoxaparin(*) 80 MG/0.8 ML SYR SUBCUT SCH ×2 (03:00→16:34)
[2018-06-24 05:41] LABS: INR 1.03 (0.77-1.02)
[2018-06-24 05:45] LABS: ABS Basophils 0 10^3/ul (0-0.2); ABS Eosinophils 0.2 10^3/ul (0-0.6); ABS Lymphocytes 1.1 10^3/ul (1.0-4.8); ABS Monocytes 0.4 10^3/ul (0-0.8); ABS Neutrophils 1.5 10^3/ul (1.5-7.7); ABS Nucleated RBC 0 10^3/ul; Eosinophil % 6.6 %; Hematocrit 39 % (42-52); Hemoglobin 13.5 g/dl (14.0-18.0); Lymphocyte % 33.5 %; Mean Corpuscular HGB Conc 35 g/dl (31-36); Mean Corpuscular Hemoglobin 33 pg (27-31); Mean Corpuscular Volume 94 fL (80-94); Mean Platelet Volume 7.6 fL (7.4-10.4); Nucleated Red Blood Cells % 0.1; Platelet Count 223 10^3/ul (150-450); Red Cell Distribution Width 13 % (10.5-15); White Blood Count 3.2 10^3/ul (3.5-10.8)
[2018-06-24 05:56] LABS: BUN/Creatinine Ratio 19.6 (8-20); Calcium 9.2 mg/dL (8.6-10.3); EGFR Non-African American 74.9 (>60); Potassium 4.8 mmol/L (3.5-5.0)
[2018-06-24] MEDS: Metoprolol Tartrate TAB* 25 MG PO SCH ×2 (08:25→21:50)
[2018-06-24] MEDS: Aspirin EC TAB* 81 MG TAB.EC PO SCH (08:25)
[2018-06-24] MEDS: Tamsulosin CAP* 0.4 MG PO SCH (08:25)
[2018-06-24] MEDS ORDERED: Nitroglycerin 2% OINT* 1 GM PAK TOPICAL SCH (12:00)
--- NOTE | 2018-06-24 12:14 | PN ---
Subjective Date of Service: 06/24/18 Interval History: Mr. Boateng is feeling well today. He did not have any chest pain overnight. He was up ambulating around the unit earlier today and became SOB with associated chest tightness after 4-5 laps of brisk walking. He sat down and symptoms resolved within 2 mins. He otherwise offers no complaints. Denies N/V/D, diaphoresis. Family History: Unchanged from Admission Social History: Unchanged from Admission Past Medical History: Unchanged from Admission Objective Active Medications: Acetaminophen (Tylenol Tab*) 650 mg PO Q4H PRN FEVER/PAIN Aspirin (Aspirin Ec Tab*) 81 mg PO DAILY MATT Atorvastatin Calcium (Lipitor*) 40 mg PO 1700 MATT Enoxaparin Sodium (Lovenox(*)) 75 mg SUBCUT Q12H MATT Metoprolol Tartrate (Lopressor Tab*) 12.5 mg PO Q12HR MATT Nitroglycerin (Nitroglycerin 2% Oint*) 0.5 inch TOPICAL Q6H MATT; Protocol Tamsulosin HCl (Flomax Cap*) 0.4 mg PO DAILY MATT Vital Signs - 8 hr 06/24/18 06/24/18 06/24/18 07:29 08:18 11:35 Temperature 97.6 F 97.3 F Pulse Rate 64 69 Respiratory 16 20 16 Rate Blood Pressure 131/72 138/74 (mmHg) O2 Sat by Pulse 98 99 Oximetry Oxygen Devices in Use Now: None Appearance: Elderly male sitting in bed in NAD Eyes: No Scleral Icterus Ears/Nose/Mouth/Throat: Mucous Membranes Moist Neck: NL Appearance and Movements; NL JVP, Trachea Midline Respiratory: Symmetrical Chest Expansion and Respiratory Effort, Clear to Auscultation Cardiovascular: NL Sounds; No Murmurs; No JVD, RRR Abdominal: NL Sounds; No Tenderness; No Distention Extremities: No Edema Skin: No Rash or Ulcers Neurological: Alert and Oriented x 3, NL Muscle Strength and Tone Lines/Tubes/Other Access: Clean, Dry and Intact Peripheral IV Nutrition: Taking PO's Result Diagrams: 06/24/18 05:20 06/24/18 05:20 Assess/Plan/Problems-Billing Assessment: Mr. Boateng is a 78 yo M with PMH of nephrolithiasis; who presented to the ED with c/o worsening CP and SOB with exertion over the last 3 weeks and was found to have an elevated troponin and EKG changes. - Patient Problems (1) Chest pain Code(s): R07.9 - CHEST PAIN, UNSPECIFIED Comment: - CP and SOB with exertion, resolves with rest - Trops peaked at 0.05 - EKG shows minimal ST elevation in V2 and V3, inverted T waves in III and aVF - Appreciate cardiology consult; plan for possible cardiac cath on Tuesday - Continue lovenox, aspirin, metoprolol, atorvastatin, nitro paste per cardiology recommendations (2) History of nephrolithiasis Code(s): Z87.442 - PERSONAL HISTORY OF URINARY CALCULI Comment: - Continue tamsulosin (3) DVT prophylaxis Code(s): [id number] - Comment: - Lovenox (4) Full code status Code(s): Z78.9 - OTHER SPECIFIED HEALTH STATUS Status and Disposition: Inpatient. Anticipate d/c home when medically stable. Attending: David Egan
[2018-06-24] MEDS: Nitroglycerin 2% OINT* 1 GM PAK TOPICAL SCH ×3 (12:18→23:16)
[2018-06-24] MEDS: Atorvastatin* 40 MG TAB PO SCH (16:34)
[2018-06-25] MEDS: Enoxaparin(*) 80 MG/0.8 ML SYR SUBCUT SCH ×2 (03:10→16:25)
[2018-06-25] MEDS: Nitroglycerin 2% OINT* 1 GM PAK TOPICAL SCH ×5 (05:07→23:57)
[2018-06-25 05:58] LABS: ABS Basophils 0.1 10^3/ul (0-0.2); ABS Eosinophils 0.2 10^3/ul (0-0.6); ABS Lymphocytes 1.1 10^3/ul (1.0-4.8); ABS Monocytes 0.3 10^3/ul (0-0.8); ABS Neutrophils 1.6 10^3/ul (1.5-7.7); ABS Nucleated RBC 0 10^3/ul; Eosinophil % 5.1 %; Hematocrit 40 % (42-52); Hemoglobin 13.9 g/dl (14.0-18.0); Lymphocyte % 33.8 %; Mean Corpuscular HGB Conc 35 g/dl (31-36); Mean Corpuscular Hemoglobin 33 pg (27-31); Mean Corpuscular Volume 95 fL (80-94); Mean Platelet Volume 7.8 fL (7.4-10.4); Nucleated Red Blood Cells % 0.1; Platelet Count 226 10^3/ul (150-450); Red Blood Count 4.22 10^6/ul (4.00-5.40); Red Cell Distribution Width 13 % (10.5-15); White Blood Count 3.3 10^3/ul (3.5-10.8)
[2018-06-25 06:11] LABS: Anion Gap 2 mmol/L (2-11); BUN/Creatinine Ratio 18.4 (8-20); Blood Urea Nitrogen 18 mg/dL (6-24); CO2 Carbon Dioxide 28 mmol/L (22-32); Calcium 9.3 mg/dL (8.6-10.3); Chloride 106 mmol/L (101-111); Glucose 105 mg/dL (70-100); Potassium 4.4 mmol/L (3.5-5.0); Sodium 136 mmol/L (135-145)
[2018-06-25] MEDS: Metoprolol Tartrate TAB* 25 MG PO SCH ×2 (09:16→20:04)
[2018-06-25] MEDS: Aspirin EC TAB* 81 MG TAB.EC PO SCH (09:17)
[2018-06-25] MEDS: Tamsulosin CAP* 0.4 MG PO SCH (09:17)
--- NOTE | 2018-06-25 10:15 | PN ---
Subjective Date of Service: 06/25/18 Interval History: Mr. Boateng is feeling well this morning. is at bedside. He offers no complaints. No further chest pain or SOB. He has been ambulating in the hallways , but has been doing fewer laps at a time. Good appetite. Denies N/V/D, diaphoresis, dizziness. Family History: Unchanged from Admission Social History: Unchanged from Admission Past Medical History: Unchanged from Admission Objective Active Medications: Acetaminophen (Tylenol Tab*) 650 mg PO Q4H PRN FEVER/PAIN Aspirin (Aspirin Ec Tab*) 81 mg PO DAILY MATT Atorvastatin Calcium (Lipitor*) 40 mg PO 1700 MATT Enoxaparin Sodium (Lovenox(*)) 75 mg SUBCUT Q12H MATT Metoprolol Tartrate (Lopressor Tab*) 12.5 mg PO Q12HR MATT Nitroglycerin (Nitroglycerin 2% Oint*) 0.5 inch TOPICAL Q6H MATT; Protocol Tamsulosin HCl (Flomax Cap*) 0.4 mg PO DAILY MATT Vital Signs - 8 hr 06/25/18 06/25/18 06/25/18 03:21 07:24 08:00 Temperature 97.6 F 97.1 F Pulse Rate 65 70 Respiratory 16 16 17 Rate Blood Pressure 131/69 129/64 (mmHg) O2 Sat by Pulse 96 99 Oximetry Oxygen Devices in Use Now: None Appearance: Elderly male standing in room in NAD Eyes: No Scleral Icterus Ears/Nose/Mouth/Throat: Mucous Membranes Moist Neck: NL Appearance and Movements; NL JVP, Trachea Midline Respiratory: Symmetrical Chest Expansion and Respiratory Effort, Clear to Auscultation Cardiovascular: NL Sounds; No Murmurs; No JVD, RRR Abdominal: NL Sounds; No Tenderness; No Distention Extremities: No Edema Skin: No Rash or Ulcers Neurological: Alert and Oriented x 3, NL Gait, NL Muscle Strength and Tone Lines/Tubes/Other Access: Clean, Dry and Intact Peripheral IV Nutrition: Taking PO's Result Diagrams: 06/25/18 05:46 06/25/18 05:46 Assess/Plan/Problems-Billing Assessment: Mr. Boateng is a 78 yo M with PMH of nephrolithiasis; who presented to the ED with c/o worsening CP and SOB with exertion over the last 3 weeks and was found to have an elevated troponin and EKG changes. - Patient Problems (1) Chest pain Code(s): R07.9 - CHEST PAIN, UNSPECIFIED Comment: - CP and SOB with exertion, resolves with rest; no further CP or SOB since yesterday - Trops peaked at 0.05 - EKG shows minimal ST elevation in V2 and V3, inverted T waves in III and aVF - Appreciate cardiology consult; plan for possible cardiac cath on Tuesday - Awaiting TTE report - NPO after midnight tonight for possible cath - Continue lovenox, aspirin, metoprolol, atorvastatin, nitro paste per cardiology recommendations (2) History of nephrolithiasis Code(s): Z87.442 - PERSONAL HISTORY OF URINARY CALCULI Comment: - Continue tamsulosin (3) DVT prophylaxis Code(s): DZX9931 - Comment: - Lovenox (4) Full code status Code(s): Z78.9 - OTHER SPECIFIED HEALTH STATUS Status and Disposition: Inpatient. Possible cardiac cath in the AM. Anticipate d/c home when medically stable. Attending: David Egan
[2018-06-25 14:09] LABS: Iron 116 ug/dL (50-212); Total Iron Binding Capacity 323 mcg/dL (250-450); Transferrin 231 mg/dL (203-362)
[2018-06-25 14:30] LABS: Ferritin 14.4 ng/mL (24-336)
[2018-06-25] MEDS: Atorvastatin* 40 MG TAB PO SCH (16:25)
[2018-06-25] MEDS: Acetaminophen TAB* 325 MG PO PRN (23:28)
[2018-06-25] MEDS ORDERED: NS 0.9% 1000 ML* 1,000 ML IV SCH (23:55)
[2018-06-26] MEDS: Enoxaparin(*) 80 MG/0.8 ML SYR SUBCUT SCH (03:29)
[2018-06-26] MEDS: Nitroglycerin 2% OINT* 1 GM PAK TOPICAL SCH (05:48)
[2018-06-26 06:32] LABS: ABS Basophils 0 10^3/ul (0-0.2); ABS Eosinophils 0.2 10^3/ul (0-0.6); ABS Monocytes 0.4 10^3/ul (0-0.8); ABS Neutrophils 1.7 10^3/ul (1.5-7.7); ABS Nucleated RBC 0 10^3/ul; Eosinophil % 5.9 %; Hematocrit 40 % (42-52); Lymphocyte % 30.3 %; Mean Corpuscular HGB Conc 35 g/dl (31-36); Mean Corpuscular Hemoglobin 33 pg (27-31); Mean Corpuscular Volume 94 fL (80-94); Mean Platelet Volume 7.7 fL (7.4-10.4); Nucleated Red Blood Cells % 0; Platelet Count 229 10^3/ul (150-450); Red Blood Count 4.25 10^6/ul (4.00-5.40); Red Cell Distribution Width 13 % (10.5-15); White Blood Count 3.3 10^3/ul (3.5-10.8)
[2018-06-26 06:48] LABS: INR 0.97 (0.77-1.02)
[2018-06-26 06:49] LABS: EGFR Non-African American 83.8 (>60); Magnesium 1.9 mg/dL (1.9-2.7); Potassium 4.6 mmol/L (3.5-5.0)
[2018-06-26] MEDS ORDERED: Diazepam TAB(*) 5 MG PO ONE (08:00)
[2018-06-26] MEDS ORDERED: diPHENhydraMINE PO* 25 MG PO ONE (08:00)
[2018-06-26] MEDS: Tamsulosin CAP* 0.4 MG PO SCH (08:26)
[2018-06-26] MEDS: Aspirin EC TAB* 81 MG TAB.EC PO SCH (08:26)
[2018-06-26] MEDS: Metoprolol Tartrate TAB* 25 MG PO SCH (08:27)
[2018-06-26] MEDS ORDERED: Heparin(*) 1000 UNIT/ML 10 ML VIAL CATH LAB IV ONE (08:40)
[2018-06-26] MEDS ORDERED: fentaNYL* 50 MCG/ML 2 ML VIAL (100 MCG VIAL) ONE (08:40)
[2018-06-26] MEDS ORDERED: Midazolam* 1 MG/ML 10 ML VIAL (10 MG) ONE (08:40)
[2018-06-26] MEDS ORDERED: nitroGLYCERIN DRIP* 25,000 MCG/250 ML BTL ONE ×2 (08:41→10:18)
[2018-06-26] MEDS ORDERED: Iohexol 350 (CONTRAST) 200 ML MDV IV ONE ×2 (08:41→09:10)
[2018-06-26] MEDS ORDERED: Heparin 2 UNITS/ML IVPREMIX* 2,000 ML IV ONE (08:41)
[2018-06-26] MEDS ORDERED: VERAPAMIL 2.5 MG/ML 2 ML VIAL ** 5 mg/2 ml ONE (08:41)
[2018-06-26] MEDS ORDERED: Lidocaine 1% INJ* 10 MG/ML 30 ML SDV ONE (08:41)
--- NOTE | 2018-06-26 08:52 | ECHO ---
Patient: IAN RODRIGUEZ [facility] Rec#: [id number] : 1940 Date: 06/26/2018 Age: 78y Height: 173 cm / 68.1 in Weight: 77.1 kg / 169.9 lbs Sex: M BSA: 1.91 Room#: [facility] Admit Date#: 06/23/2018 Type: Inpatient Referring: Laquita Man Reading: Ryne Denny MD Environmental Change Analyst: Jayda Pratt RDCS CC: Arturo Brooks MD Transthoracic Echocardiogram Indication: Chest pain BP: 133/70 HR: 68 Rhythm: NSR with PVCs Findings History: Kidney stones, no known prior cardiac history. Technical Comments: The study quality is good. Completed at 0815. Left Ventricle: The left ventricular chamber size is normal. Mild concentric left ventricular hypertrophy is observed. There is a prominent septal knuckle. Global left ventricular wall motion and contractility are within normal limits. There is normal left ventricular systolic function. The estimated ejection fraction is 55-60%. Abnormal left ventricular diastolic function is observed. Abnormal left ventricular diastolic filling is observed, consistent with impaired relaxation. Left Atrium: The left atrium is mildly dilated. Right Ventricle: The right ventricular cavity size is normal. The right ventricular global systolic function is low normal. Right Atrium: The right atrium is mildly dilated. Aortic Valve: The aortic valve is trileaflet. The aortic valve leaflets are mildly thickened. There is aortic annular calcification. There is trace to mild aortic regurgitation. There is no evidence of aortic stenosis. Mitral Valve: The mitral valve leaflets are mildly thickened. There is mild mitral regurgitation. The MR appears to increase during mid to late systole but overall is mild. There is no evidence of mitral stenosis. Tricuspid Valve: The tricuspid valve leaflets are normal. There is trace to mild tricuspid regurgitation. The right ventricular systolic pressure is estimated at 24 mmHg. No pulmonary hypertension is noted. There is no tricuspid stenosis. Pulmonic Valve: The pulmonic valve appears normal. There is a trace pulmonic regurgitation. There is no pulmonic stenosis. Pericardium: There is no significant pericardial effusion. Aorta: There is no dilatation of the ascending aorta. There is no dilatation of the aortic arch. The aortic root is normal in size. Pulmonary Artery: The main pulmonary artery appears normal. Venous: The inferior vena cava appears normal in size. There is a greater than 50% respiratory change in the inferior vena cava dimension. Summary: There was not any prior study for comparison. Conclusions Mild concentric left ventricular hypertrophy is observed. There is normal left ventricular systolic function. The estimated ejection fraction is 55-60%. Abnormal left ventricular diastolic filling is observed, consistent with impaired relaxation. The left atrium is mildly dilated. There is trace to mild aortic regurgitation. There is mild mitral regurgitation. The MR appears to increase during mid to late systole but overall is mild. There is trace to mild tricuspid regurgitation. Measurements Name Value Normal Range RVIDd (AP) 2D 3.1 cm (0.9 - 2.6) RVDdMajor (2D) 3.9 cm (2.2 - 4.4) RAd ISD 4CH 5.6 cm (3.4 - 4.9) RA (A4C)W 5 cm (2.9 - 4.6) IVSd (2D) 1.2 cm (0.6 - 1) LVPWd (2D) 1.2 cm (0.6 - 1) LVIDd (2D) 4.2 cm (3.6 - 5.4) LVIDs (2D) 2.4 cm - LV FS (2D) 42 % (25 - 45) Aortic Annulus 2 cm (1.4 - 2.6) Ao root diameter (2D) 3.4 cm (2.1 - 3.5) Ascending Ao 3.4 cm (2.1 - 3.4) Aortic arch 2 cm (1.8 - 3.4) LA dimension (AP) 2D 4.7 cm (2.3 - 3.8) LAd ISD 4CH 5.2 cm (2.9 - 5.3) LA ISD 4CH W 4.5 cm (2.5 - 4.5) Name Value Normal Range LA ESV BP (A/L) index 38 ml/m2 - Name Value Normal Range MV E-wave Vmax 0.8 m/sec - MV deceleration time 155 msec - MV A-wave Vmax 0.7 m/sec - MV E:A ratio 1 ratio - LV septal e' Vmax 0.06 m/sec - LV lateral e' Vmax 0.06 m/sec - LV E:e' septal ratio 13.3 ratio - LV E:e' lateral ratio 13.3 ratio - Name Value Normal Range AV Vmax 1.4 m/sec - AV VTI 30 cm - AV peak gradient 7 mmHg - AV mean gradient 3 mmHg - LVOT Vmax 0.9 m/sec - LVOT VTI 22 cm - LVOT peak gradient 4 mmHg - LVOT mean gradient 2 mmHg - LANA Vmax 0.6 m/sec - Name Value Normal Range TR Vmax 2.3 m/sec - TR peak gradient 21 mmHg - RAP 3 mmHg - RVSP 24 mmHg - IVC diameter 1.4 cm - Name Value Normal Range PV Vmax 1.2 m/sec - PV peak gradient 5 mmHg - MA end-diastolic Vmax 0.9 m/sec - PA end-diastolic pressur3 mmHg -
[2018-06-26] MEDS ORDERED: Adenosine (DIAGNOSTIC) * 3 MG/ML 20 ML VIAL (60 MG) IV ONE ×2 (09:45)
[2018-06-26] MEDS ORDERED: Adenosine* 3 MG/ML VIAL ONE (09:46)
[2018-06-26] MEDS ORDERED: Ticagrelor* 90 MG TAB PO ONE (10:16)
[2018-06-26] MEDS ORDERED: Nitroglycerin TAB 0.4 MG* 0.4 MG TAB SL PRN (11:10)
[2018-06-26] MEDS ORDERED: Docusate CAP* 100 MG PO PRN (11:17)
[2018-06-26] MEDS ORDERED: fentaNYL* 50 MCG/ML 2 ML VIAL (100 MCG VIAL) IV PRN (11:17)
[2018-06-26] MEDS ORDERED: Zolpidem TAB* 5 MG PO PRN (11:17)
[2018-06-26] MEDS ORDERED: Ondansetron INJ* 2 MG/ML VIAL IV PRN (11:17)
[2018-06-26] MEDS ORDERED: amLODIPine TAB* 5 MG PO SCH (12:00)
[2018-06-26] MEDS: Nitroglycerin 0.2 MG/HR PATCH* (5 MG) TRANSDERM SCH (12:36)
[2018-06-26] MEDS ORDERED: Metoprolol Tartrate TAB* 25 MG PO ONE (13:14)
--- NOTE | 2018-06-26 13:38 | PN ---
Subjective Date of Service: 06/26/18 Interval History: Mr. Boateng is feeling well post cath. He is happy about the prospect of going home tomorrow. He did not have anymore chest pain or SOB overnight. No N/V, diaphoresis. He is having some back pain on my exam, secondary to positioning post cath. Family History: Unchanged from Admission Social History: Unchanged from Admission Past Medical History: Unchanged from Admission Objective Active Medications: Acetaminophen (Tylenol Tab*) 650 mg PO Q4H PRN FEVER/PAIN Aspirin (Aspirin Ec Tab*) 81 mg PO DAILY MATT Atorvastatin Calcium (Lipitor*) 80 mg PO 1700 MATT Docusate Sodium (Colace Cap*) 100 mg PO DAILY PRN CONSTIPATION Fentanyl Citrate (Fentanyl*) 25 mcg IV Q2H PRN PAIN Sodium Chloride (Ns 0.9% 1000 Ml*) 1,000 mls @ 100 mls/hr IV .per rate MATT Metoprolol Tartrate (Lopressor Tab*) 25 mg PO Q12HR MATT Nitroglycerin (Nitroglycerin Tab 0.4 Mg*) 0.4 mg SL Q5M PRN ANGINA Nitroglycerin (Nitroglycerin 5 Mg Patch*) 1 patch TRANSDERM DAILY@0900 MATT Ondansetron HCl (Zofran Inj*) 4 mg IV Q4H PRN NAUSEA Pharmacy Profile Note (Nitro Patch/Oint Remove*) 1 note PATCH OFF 2100 MATT Tamsulosin HCl (Flomax Cap*) 0.4 mg PO DAILY MATT Ticagrelor (Brilinta*) 90 mg PO BID MATT Zolpidem Tartrate (Ambien Tab*) 5 mg PO BEDTIME PRN INSOMNIA Vital Signs - 8 hr 06/26/18 06/26/18 06/26/18 07:27 08:00 08:26 Temperature 97.6 F Pulse Rate 76 Respiratory 16 18 16 Rate Blood Pressure 143/84 (mmHg) O2 Sat by Pulse 99 Oximetry 06/26/18 06/26/18 06/26/18 11:17 11:23 11:25 Temperature 98 F Pulse Rate 60 56 Respiratory 5 17 13 Rate Blood Pressure 116/65 116/65 (mmHg) O2 Sat by Pulse 95 96 Oximetry 06/26/18 06/26/18 06/26/18 11:30 11:45 12:00 Temperature Pulse Rate 57 60 62 Respiratory 15 15 13 Rate Blood Pressure 135/69 120/70 126/77 (mmHg) O2 Sat by Pulse 96 97 97 Oximetry 06/26/18 06/26/18 06/26/18 12:01 12:15 12:25 Temperature Pulse Rate 59 57 Respiratory 16 13 17 Rate Blood Pressure 136/71 (mmHg) O2 Sat by Pulse 96 96 Oximetry 06/26/18 06/26/18 06/26/18 12:28 12:30 12:45 Temperature 98.1 F Pulse Rate 58 65 Respiratory 14 18 Rate Blood Pressure 123/74 143/74 (mmHg) O2 Sat by Pulse 96 97 Oximetry 06/26/18 06/26/18 06/26/18 13:00 13:01 13:17 Temperature Pulse Rate 65 61 Respiratory 16 20 17 Rate Blood Pressure 140/77 (mmHg) O2 Sat by Pulse 96 96 Oximetry Oxygen Devices in Use Now: None Appearance: Elderly male laying in bed in NAD Eyes: No Scleral Icterus Ears/Nose/Mouth/Throat: Mucous Membranes Moist Neck: NL Appearance and Movements; NL JVP, Trachea Midline Respiratory: Symmetrical Chest Expansion and Respiratory Effort, Clear to Auscultation Cardiovascular: NL Sounds; No Murmurs; No JVD, RRR Abdominal: NL Sounds; No Tenderness; No Distention Extremities: No Edema Skin: No Rash or Ulcers Neurological: Alert and Oriented x 3 Lines/Tubes/Other Access: Clean, Dry and Intact Peripheral IV Nutrition: Taking PO's Result Diagrams: 06/26/18 06:17 06/26/18 06:17 Assess/Plan/Problems-Billing Assessment: Mr. Boateng is a 78 yo M with PMH of nephrolithiasis; who presented to the ED with c/o worsening CP and SOB with exertion over the last 3 weeks and was found to have an elevated troponin and EKG changes. - Patient Problems (1) Unstable angina Code(s): I20.0 - UNSTABLE ANGINA Comment: - CP and SOB with exertion, resolved with rest; no further CP or SOB - Trops peaked at 0.05 - EKG shows minimal ST elevation in V1-V3, inverted T waves in anterior leads - Appreciate cardiology consult; cardiac cath this morning, s/p RCA stenting - Continue aspirin, Brilinta, metoprolol, atorvastatin, nitro patch per cardiology recommendations; will need to be on all these medications at d/c (2) History of nephrolithiasis Code(s): Z87.442 - PERSONAL HISTORY OF URINARY CALCULI Comment: - Continue tamsulosin (3) DVT prophylaxis Code(s): [id number] - Comment: - Lovenox (4) Full code status Code(s): Z78.9 - OTHER SPECIFIED HEALTH STATUS Comment: Status and Disposition: Inpatient. Anticipate d/c home when medically stable, possibly tomorrow. Attending: Lana Hernandez
[2018-06-26] MEDS: Acetaminophen TAB* 325 MG PO PRN (15:59)
--- NOTE | 2018-06-26 16:18 | CATH ---
CC: Dr. Arturo Brooks; Dr. Joce Watters, [facility] * CARDIAC CATHETERIZATION AND INTERVENTIONAL REPORT: DATE OF PROCEDURE: 06/26/18 INDICATION FOR PROCEDURE: The patient presents with progressive angina pectoris ; abnormal, however, flat troponin elevation borderline with abnormal T-waves in the inferior leads, rule out the presence of significant coronary artery disease. PROCEDURES: Coronary arteriography, fractional flow reserve analysis of mid LAD lesion and second diagonal lesion and proximal circumflex lesion, and primary stenting of proximal right coronory artery with a 3.0 x 24 mm long Synergy drug- eluting stent post dilated to 3.3 to 3.4 mm. CONSENT: The patient was interviewed and examined on the floor of the hospital where the risks and benefits were explained. He understood them and wished to proceed. APPROACH: The right radial artery was assessed under ultrasound guidance on the floor of the hospital and found to be acceptable for an approach. Unfortunately in the catheter builder, a marked right radial artery loop was noted and as such this approach was aborted for the right femoral artery. PRE-CARDIAC CATHETERIZATION LABORATORY RESULTS: Hemoglobin and hematocrit of 14 and 40 with a white count of 3300, platelet count of 229,000, BUN and creatinine of 15 and 0.8, sodium 137, potassium 4.6, chloride 108, bicarb 27. MEDICATIONS UTILIZED IN THE SLITTER OPERATOR: 1. Xylocaine for local anesthesia to the wrist and groin area. 2. Adenosine boluses intracoronary for FFR. 3. Brilinta 180 mg before stent placement. 4. Nitroglycerin IV drip started at 2 mcg per minute. 5. Fentanyl 25 mcg intravenously for discomfort. 6. Intracoronary nitroglycerin. EQUIPMENT UTILIZED: 1. Right radial sheath - a 6-[place] Glidesheath. 2. Wires attempting to navigate the radial artery area included a 260 length Bond curved wire and a 145 length Wholey wire. 3. Right femoral artery sheath - A 5-[place]ander 11 cm [place] [employer] sheath. 4. Coronary arteriography catheter - A 5-[place]ander FL4 and FR4 curved diagnostic catheter. 5. Interventional sheath utilized - a 6.5 [employer]it Prelude sheath. 6. The guide catheter was a 6-[place] VL3.0 curve guide catheter. 7. The FFR wire was a Comet pressure guide wire 185 cm length by [employer]. 8. Right coronary artery guide catheter is initially 6-[place] ART4 curve, which was exchanged for a 6-[place] FR4 curve. The interventional wire with a 190 length [employer] Guidewire. 9. The stent unutilized for proximal right coronary artery - 3.0 x 24 mm long Synergy drug-eluting stent. 10. Post stent deployment balloon inflation catheter - a 3.25 x 12 mm long NC Emerge to high pressures. 11. Closure device for the groin area with a 6/7-[place]ander Mynx closure device. 12. Closing device for the right radial artery was a Vasc Band. DESCRIPTION OF PROCEDURE: The patient was brought to the cardiovascular laboratory, formal time out as performed. The right radial artery was anesthetized with 1% lidocaine under the ultrasound guidance. Right radial artery was entered and the sheath was placed. Because of difficulty passing the initial J curved wire, an ejection was made and there was found to be a significant loop that unfortunately could not be easily traversed. The decision was then made to abort the right radial artery area and proceed to the right femoral artery. The right femoral artery area was anesthetized with 1% lidocaine. The right femoral artery was cannulated with an anterior wall only stick and the 5-[place]ander sheath was placed. Diagnostic coronary arteriography was performed. Following this, the decision was made to perform FFR to multiple vessels of the left coronary artery system. Guiding catheter that fit for the left coronary artery was a VL 3.0 curve guide catheter. Of note, the patient was still under the 8-hour time period of his last dose of Lovenox and as such, no additional anticoagulation was given. Fractional flow reserve analysis was performed to the mid LAD, the second larger diagonal branch into the proximal circumflex. Following this, decision was made to place a stent into the proximal right coronary artery. Guiding views were initially utilized with a ART4 curve 6-[place]ander guide catheter, but then this was replaced for a JR4 in order to avoid any deep cannulation of the right coronary artery. Primary stenting was carried out with the 3.0 x 24 mm long Synergy drug eluting stent post dilated with the 3.25 x 12 mm long Emerge balloon to high pressures. The artery was then assessed with the wire in place and wire removed. [place] usage of intracoronary nitroglycerin was given as there was mild spasm of the proximal right coronary artery. At the end of the case, the catheter and sheath were removed and hemostasis was obtained with the Mynx for groin and with a Vasc Band for the right radial artery. The reverse Barbeau was a B. The total contrast used was 250 cc of Omnipaque dye. The radiation exposure included 20.3 minutes of floor time. The air kerma radiation was 2968 milligray. The DAP radiation was 20448 microgray per meter square. RESULTS: CORONARY ARTERIOGRAPHY: A. Left coronary artery. 1. Left main - Widely patent with no significant disease. 2. Left anterior descending artery - the proximal to mid portion left anterior descending artery had calcium seen throughout its portion. The mid segment of the right coronary artery after the first septal mine technician after the first two diagonal branches had a narrowing, which appeared to be as much as 75% to 80%. Calcium was seen in this. The first diagonal branch was a smaller caliber vessel. The second diagonal branch appeared to have ostial narrowing of about 65% followed by a 45% to 50% narrowing. The third diagonal branch had a proximal narrowing that appeared to be as much as 70% in its worst view. 3. Circumflex artery - the ostium of the circumflex artery appeared to have a narrowing of 55% to 60% in its worst view. The circumflex supplied a very thin first obtuse marginal branch and a moderate bifurcating second obtuse marginal branch, which traversed to the low inferior apical region. B. Right coronary artery - a dominant vessel supplying the PDA and multiple posterior left ventricular branches. The proximal portion of the right coronary artery had a long segment of 35% to 40% obstruction leading to the proximal to mid portion, which had a very eccentric dissected appearance to it with a narrowing that appeared to me as much as as 85% to 90% in its worst view. The continuation of the right coronary artery had a long segment of 45% to 50% narrowing with disease. There were three acute marginal branches before the artery turned on to the inferior surface of the heart, the middle of the three had a 75% ostial narrowing. FRACTIONAL FLOW RESERVE ANALYSIS: A. Mid left anterior descending artery - mid left anterior descending artery had a significant fractional flow reserve value without adenosine being administered with a value of 0.76. B. The second diagonal branch - fractional flow reserve value of 0.95 with 72 mcg of adenosine intracoronary. C. Proximal circumflex - fractional flow reserve analysis of 0.98 with 72 mcg of adenosine intracoronary. INTERVENTION INTO A PROXIMAL RIGHT CORONARY ARTERY: Successful intervention with reduction of critical 85% to 90% ulcerated appearing lesion with 0% residual stenosis utilizing a 3.0 x 24 mm long Synergy drug-eluting stent post dilated to 3.3 mm with MARJ-3 flow, no dissection seen and 0% residual stenosis. OVERALL ASSESSMENT: Successful intervention into critically stenosed proximal right coronary artery with residual coronary artery disease as described with classification within the left in the mid LAD system. FFR to more proximal diagonal branch not found to be significant. A intermediate lesion of the proximal ostial circumflex also was not significant. At this point in time, dual- antiplatelet therapy will be maintained with Brilinta and baby aspirin. I discussed with the patient obtaining a tertiary center evaluation for the potential of the need to have a rotational atherectomy device available for mid LAD lesion given the calcification. At this point in time, he felt that he wish to have that evaluation be through [facility] in [place] and as such I will be speaking with the interventionalists at their hospital to review the films and get back to me. For now, we will switch him from topical nitrites to nitro patch in addition to potentially increasing his beta-blockers further, maintaining dual- antiplatelet therapy and high-dose statin therapy by increasing it to 80 mg atorvastatin a day. Depending on the evaluation by the physicians at [facility], potential intervention to the LAD could be carried out within the next week to two weeks. There is MARJ-3 flow and no profound ulcerations seen to the left anterior descending artery. We will instruct the patient not to perform any type of significant exertional activity till this could be further addressed. [id number]/[facility] #: [id number] PARVEZ
[2018-06-26] MEDS ORDERED: Atorvastatin* 80 MG TAB PO SCH (17:00)
[2018-06-26] MEDS ORDERED: NS 0.9% 1000 ML* 1,000 ML IV SCH (20:15)
[2018-06-26] MEDS ORDERED: Nitro Patch/OINT Remove PATCH OFF SCH (21:00)
[2018-06-26] MEDS ORDERED: Metoprolol Tartrate TAB* 25 MG PO SCH ×2 (21:00)
[2018-06-26 21:08] LABS: ABS Basophils 0 10^3/ul (0-0.2); ABS Eosinophils 0.1 10^3/ul (0-0.6); ABS Lymphocytes 0.6 10^3/ul (1.0-4.8); ABS Monocytes 0.5 10^3/ul (0-0.8); ABS Neutrophils 4.7 10^3/ul (1.5-7.7); ABS Nucleated RBC 0 10^3/ul; Hematocrit 37 % (42-52); Hemoglobin 12.8 g/dl (14.0-18.0); Lymphocyte % 9.8 %; Mean Corpuscular HGB Conc 35 g/dl (31-36); Mean Corpuscular Hemoglobin 32 pg (27-31); Mean Corpuscular Volume 94 fL (80-94); Mean Platelet Volume 7.6 fL (7.4-10.4); Nucleated Red Blood Cells % 0; Platelet Count 214 10^3/ul (150-450); Red Blood Count 3.96 10^6/ul (4.00-5.40); Red Cell Distribution Width 13 % (10.5-15); White Blood Count 5.8 10^3/ul (3.5-10.8)
[2018-06-26 21:23] LABS: BUN/Creatinine Ratio 17.3 (8-20); Calcium 8.9 mg/dL (8.6-10.3); Magnesium 1.9 mg/dL (1.9-2.7); Potassium 4.1 mmol/L (3.5-5.0)
[2018-06-26] MEDS: Ticagrelor* 90 MG TAB PO SCH (22:08)
[2018-06-27 06:05] LABS: ABS Basophils 0 10^3/ul (0-0.2); ABS Eosinophils 0.1 10^3/ul (0-0.6); ABS Lymphocytes 0.8 10^3/ul (1.0-4.8); ABS Monocytes 0.4 10^3/ul (0-0.8); ABS Neutrophils 3.5 10^3/ul (1.5-7.7); ABS Nucleated RBC 0 10^3/ul; Eosinophil % 2.1 %; Hematocrit 38 % (42-52); Hemoglobin 12.9 g/dl (14.0-18.0); Lymphocyte % 17.3 %; Mean Corpuscular HGB Conc 34 g/dl (31-36); Mean Corpuscular Hemoglobin 33 pg (27-31); Mean Corpuscular Volume 96 fL (80-94); Mean Platelet Volume 7.9 fL (7.4-10.4); Nucleated Red Blood Cells % 0; Platelet Count 215 10^3/ul (150-450); Red Blood Count 3.94 10^6/ul (4.00-5.40); Red Cell Distribution Width 13 % (10.5-15); White Blood Count 4.9 10^3/ul (3.5-10.8)
[2018-06-27 06:10] LABS: Albumin 3.1 g/dL (3.2-5.2); Albumin/Globulin Ratio 1.1 (1-3); BUN/Creatinine Ratio 17.1 (8-20); EGFR Non-African American 90.9 (>60); Globulin 2.7 g/dL (2-4); Potassium 3.8 mmol/L (3.5-5.0); Total Bilirubin 0.6 mg/dL (0.2-1.0); Total Protein 5.8 g/dL (6.4-8.9)
[2018-06-27] MEDS: Tamsulosin CAP* 0.4 MG PO SCH (08:38)
[2018-06-27] MEDS: Ticagrelor* 90 MG TAB PO SCH ×2 (08:38→21:52)
[2018-06-27] MEDS: Aspirin EC TAB* 81 MG TAB.EC PO SCH (08:39)
[2018-06-27] MEDS ORDERED: Metoprolol Tartrate TAB* 25 MG PO SCH (09:00)
--- NOTE | 2018-06-27 09:06 | PN ---
Hospitalist Progress Note Date of Service: 06/26/18 got called reg he had blurry vision. he also has hypotension as a compounding factor. will order frequent neuro check. ? mri of head in am in additon to carotid if pt is stable for those two imaging test. spoke with neuro systems administration analyst reg this---> will see pt in am
[2018-06-27] MEDS: Metoprolol Succinate XL TAB* 25 MG PO SCH (09:10)
[2018-06-27] MEDS ORDERED: Nitroglycerin 0.1 mg/Hr PATCH* (2.5 MG) TRANSDERM SCH (10:30)
[2018-06-27] MEDS: Nitroglycerin 0.2 MG/HR PATCH* (5 MG) TRANSDERM SCH (10:55)
--- NOTE | 2018-06-27 11:14 | PN ---
Subjective Date of Service: 06/27/18 Interval History: No more nausea or AMS since the 1-2 minute episode last evening. No chest pain since admission. No new c/o. Family History: Unchanged from Admission Social History: Unchanged from Admission Past Medical History: Unchanged from Admission Objective Active Medications: Acetaminophen (Tylenol Tab*) 650 mg PO Q4H PRN PRN Reason: FEVER/PAIN Last Admin: 06/26/18 15:59 Dose: 650 mg Aspirin (Aspirin Ec Tab*) 81 mg PO DAILY [facility] Last Admin: 06/27/18 08:39 Dose: 81 mg Atorvastatin Calcium (Lipitor*) 80 mg PO 1700 [facility] Last Admin: 06/26/18 22:08 Dose: 80 mg Docusate Sodium (Colace Cap*) 100 mg PO DAILY PRN PRN Reason: CONSTIPATION Metoprolol Succinate (Toprol Xl Tab*) 25 mg PO DAILY [facility] Last Admin: 06/27/18 09:10 Dose: 25 mg Nitroglycerin (Nitroglycerin Tab 0.4 Mg*) 0.4 mg SL Q5M PRN PRN Reason: ANGINA Nitroglycerin (Nitroglycerin 5 Mg Patch*) 1 patch TRANSDERM DAILY@0900 [facility] Last Admin: 06/27/18 10:55 Dose: Not Given Nitroglycerin (Nitroglycerin 2.5 Mg Patch*) 1 patch TRANSDERM DAILY@0900 [facility] Last Admin: 06/27/18 10:36 Dose: 1 patch Ondansetron HCl (Zofran Inj*) 4 mg IV Q4H PRN PRN Reason: NAUSEA Pharmacy Profile Note (Nitro Patch/Oint Remove*) 1 note PATCH OFF 2099 [facility] Last Admin: 06/26/18 19:14 Dose: 1 note Pharmacy Profile Note (Nitro Patch/Oint Remove*) 1 note PATCH OFF 2099 [facility] Tamsulosin HCl (Flomax Cap*) 0.4 mg PO DAILY [facility] Last Admin: 06/27/18 08:38 Dose: 0.4 mg Ticagrelor (Brilinta*) 90 mg PO BID [facility] Last Admin: 06/27/18 08:38 Dose: 90 mg Zolpidem Tartrate (Ambien Tab*) 5 mg PO BEDTIME PRN PRN Reason: INSOMNIA Vital Signs - 8 hr 06/27/18 06/27/18 06/27/18 03:49 04:00 04:01 Temperature 98 F Pulse Rate 69 69 Respiratory 14 18 Rate Blood Pressure 133/73 (mmHg) O2 Sat by Pulse 95 96 Oximetry 06/27/18 06/27/18 06/27/18 05:00 05:01 06:00 Temperature Pulse Rate 60 60 86 Respiratory 16 13 19 Rate Blood Pressure 106/56 121/74 (mmHg) O2 Sat by Pulse 95 95 97 Oximetry 06/27/18 06/27/18 06/27/18 06:01 07:00 07:01 Temperature Pulse Rate 70 78 75 Respiratory 13 17 14 Rate Blood Pressure 139/80 (mmHg) O2 Sat by Pulse 94 93 95 Oximetry 06/27/18 06/27/18 06/27/18 07:20 08:00 08:01 Temperature 98.5 F Pulse Rate 73 77 Respiratory 19 15 Rate Blood Pressure 149/80 (mmHg) O2 Sat by Pulse 97 96 Oximetry 06/27/18 06/27/18 06/27/18 09:00 09:01 10:00 Temperature Pulse Rate 75 82 80 Respiratory 21 19 21 Rate Blood Pressure 158/78 (mmHg) O2 Sat by Pulse 95 96 96 Oximetry Oxygen Devices in Use Now: None Appearance: Alert, partly up on ICU bed. In good spirits, looks comfortable. Eyes: No Scleral Icterus Respiratory: Symmetrical Chest Expansion and Respiratory Effort, Clear to Auscultation, Clear to Percussion Cardiovascular: NL Sounds; No Murmurs; No JVD, RRR, No Edema, - Extremities: No Edema, No Clubbing, Cyanosis, - Skin: No Rash or Ulcers, No Nodules or Sclerosis, - Neurological: Alert and Oriented x 3, NL Sensation Result Diagrams: 06/27/18 05:12 06/27/18 05:12 Additional Lab and Data: Lab Results 06/23/18 Range/Units 12:50 WBC 4.6 (3.5-10.8) 10^3/ul RBC 4.60 (4.00-5.40) 10^6/ul Hgb 14.9 (14.0-18.0) g/dl Hct 44 (42-52) % MCV 95 H (80-94) fL MCH 32 H (27-31) pg MCHC 34 (31-36) g/dl RDW 13 (10.5-15) % Plt Count 249 (150-450) 10^3/ul MPV 7.6 (7.4-10.4) fL Neut % (Auto) 67.5 % Lymph % (Auto) 21.9 % [place] % (Auto) 7.9 % Eos % (Auto) 1.9 % Baso % (Auto) 0.8 % Absolute Neuts (auto) 3.1 (1.5-7.7) 10^3/ul Absolute Lymphs (auto) 1.0 (1.0-4.8) 10^3/ul Absolute Monos (auto) 0.4 (0-0.8) 10^3/ul Absolute Eos (auto) 0.1 (0-0.6) 10^3/ul Absolute Basos (auto) 0 (0-0.2) 10^3/ul Absolute Nucleated RBC 0 10^3/ul Nucleated RBC % 0.1 Assess/Plan/Problems-Billing Assessment: Mr. Boateng is a 78 yo M with PMH of nephrolithiasis; who presented to the ED with c/o worsening CP and SOB with exertion over the last 3 weeks and was found to have an elevated troponin and EKG changes. - Patient Problems (1) Unstable angina Current Visit: Yes Status: Acute Code(s): I20.0 - UNSTABLE ANGINA SNOMED Code(s): 5604825 Comment: s/p RCA stenting, med changes. - Continue aspirin, Brilinta, metoprolol, atorvastatin, nitro patch. Patient will ambulate in gore. Need to settle question of further intervention before discharge. Status and Disposition: Inpatient. Anticipate d/c home when medically stable, possibly tomorrow.
--- NOTE | 2018-06-27 11:47 | CONSULT ---
Consult Consult: NEUROLOGY CONSULTATION Patient seen and examined 06/27/2018 at 9am CC: brief gaze deviation HPI:This is a 78 yr old right handed man with history of nephrolithiasis who presented with CP and SOB on exertion who was found to have elevated troponins and EKG changes. The patient is s/p RCA stenting. He is currently on asa and brilinta. On 06/26/2018 at 19.07 the patient was noted to complains of nausea with sudden onset of pallor, leftward gaze, snoring breath sounds, with flexed arms. BP was noted to be 75/41 HR 60s. The patient does not recall if he lost consciousness. He feels back to himself. No numbness, tingling, focal weakness or ataxia. Review of Systems: The patient's review of systems questionnaire was reviewed and there are no additional pertinent positives. Allergies No Known Allergies Allergy (Verified 03/21/15 10:36) Home Meds Aspirin EC TAB* [Ecotrin EC Low Dose 81 MG*] 81 mg PO DAILY 06/23/18 [History Confirmed 06/23/18] Tamsulosin CAP* [Flomax CAP*] 0.4 mg PO DAILY 06/23/18 [History Confirmed ] Vital Signs Temp 98.5 F 06/27/18 07:20 Pulse 69 06/27/18 11:01 Resp 16 06/27/18 11:01 BP 134/69 06/27/18 11:00 Pulse Ox 93 06/27/18 11:01 Intake & Output 06/26/18 06/27/18 06/27/18 18:59 06:59 18:59 Intake Total 1780 1225 360 Output Total 300 675 425 Balance 1480 550 -65 Weight 178 lb 9.191 oz Intake: IV Fluids 500 625 NS (0.9%) 500 625 Oral 1280 600 360 Output: Urine 300 675 425 Other: Estimated Void Medium Date of Last Bowel 06/26/18 Movement # Bowel Movements 1 Estimated Stool Amount Medium # Voids 1 1 Exam: General: NAD, NCAT CVS/Resp: regular rate, breathing comfortably Mental Status: attentive/oriented/fluent CN: PERRLA, EOMI, V1=V2=V3, face symmetrical, hearing grossly intact, palate midline, SCM/trapezius strength intact bilaterally, tongue midline Motor: strength intact, normal tone/bulk, bilaterally in UE/LEs Sensory: grossly intact LT in arms, legs, and trunk Coord/ Gait: intact FFM/ FTN/DARLENE in UE/LEs Reflexes: intact symmetrically in UE/LEs Laboratory: Laboratory Results WBC 4.9 10^3/ul (3.5-10.8) 06/27/18 05:12 RBC 3.94 10^6/ul (4.00-5.40) L 06/27/18 05:12 Hgb 12.9 g/dl (14.0-18.0) L 06/27/18 05:12 Hct 38 % (42-52) L 06/27/18 05:12 MCV 96 fL (80-94) H 06/27/18 05:12 MCH 33 pg (27-31) H 06/27/18 05:12 MCHC 34 g/dl (31-36) 06/27/18 05:12 RDW 13 % (10.5-15) 06/27/18 05:12 Plt Count 215 10^3/ul (150-450) 06/27/18 05:12 MPV 7.9 fL (7.4-10.4) 06/27/18 05:12 Neut % (Auto) 72.1 % 06/27/18 05:12 Lymph % (Auto) 17.3 % 06/27/18 05:12 [place] % (Auto) 8.1 % 06/27/18 05:12 Eos % (Auto) 2.1 % 06/27/18 05:12 Baso % (Auto) 0.4 % 06/27/18 05:12 Absolute Neuts (auto) 3.5 10^3/ul (1.5-7.7) 06/27/18 05:12 Absolute Lymphs (auto) 0.8 10^3/ul (1.0-4.8) L 06/27/18 05:12 Absolute Monos (auto) 0.4 10^3/ul (0-0.8) 06/27/18 05:12 Absolute Eos (auto) 0.1 10^3/ul (0-0.6) 06/27/18 05:12 Absolute Basos (auto) 0 10^3/ul (0-0.2) 06/27/18 05:12 Absolute Nucleated RBC 0 10^3/ul 06/27/18 05:12 Nucleated RBC % 0 06/27/18 05:12 INR (Anticoag Therapy) 0.97 (0.77-1.02) 06/26/18 06:17 D-Dimer, Quantitative < 200 ng/mL (Less Than 230) 06/23/18 23:44 Sodium 136 mmol/L (135-145) 06/27/18 05:12 Potassium 3.8 mmol/L (3.5-5.0) 06/27/18 05:12 Chloride 110 mmol/L (101-111) 06/27/18 05:12 Carbon Dioxide 23 mmol/L (22-32) 06/27/18 05:12 Anion Gap 3 mmol/L (2-11) 06/27/18 05:12 BUN 14 mg/dL (6-24) 06/27/18 05:12 Creatinine 0.82 mg/dL (0.67-1.17) 06/27/18 05:12 Est GFR ( Amer) 109.9 (>60) 06/27/18 05:12 Est GFR (Non-Af Amer) 90.9 (>60) 06/27/18 05:12 BUN/Creatinine Ratio 17.1 (8-20) 06/27/18 05:12 Glucose 99 mg/dL (70-100) 06/27/18 05:12 Lactic Acid 0.7 mmol/L (0.5-2.0) 06/23/18 12:50 Calcium 9.0 mg/dL (8.6-10.3) 06/27/18 05:12 Magnesium 1.9 mg/dL (1.9-2.7) 06/26/18 20:50 Iron 116 ug/dL (50-212) 06/25/18 05:46 TIBC 323 mcg/dL (250-450) 06/25/18 05:46 % Saturation 36 % (15-55) 06/25/18 05:46 Unsat Iron Binding < 308 ug/dL 06/25/18 05:46 Transferrin 231 mg/dL (203-362) 06/25/18 05:46 Ferritin 14.4 ng/mL (24-336) L 06/25/18 05:46 Total Bilirubin 0.60 mg/dL (0.2-1.0) 06/27/18 05:12 AST 74 U/L (13-39) H 06/27/18 05:12 ALT 79 U/L (7-52) H 06/27/18 05:12 Alkaline Phosphatase 78 U/L (34-104) 06/27/18 05:12 Total Creatine Kinase 47 U/L (10-223) 06/27/18 05:12 CK-MB (CK-2) 1.9 ng/mL (0.6-6.3) 06/27/18 05:12 Troponin I 0.07 ng/mL (<0.04) H* 06/27/18 05:12 Total Protein 5.8 g/dL (6.4-8.9) L 06/27/18 05:12 Albumin 3.1 g/dL (3.2-5.2) L 06/27/18 05:12 Globulin 2.7 g/dL (2-4) 06/27/18 05:12 Albumin/Globulin Ratio 1.1 (1-3) 06/27/18 05:12 Triglycerides 136 mg/dL 06/23/18 12:50 Cholesterol 295 mg/dL 06/23/18 12:50 LDL Cholesterol 218 mg/dL 06/23/18 12:50 HDL Cholesterol 49.8 mg/dL 06/23/18 12:50 TSH 1.67 mcIU/mL (0.34-5.60) 06/23/18 12:50 Imaging: All Neuroimaging reviewed personally by me as well as Neuroradiology HCT:no acute intracranial pathology Carotids: IMPRESSION: 1. Bilateral bifurcation plaque, right greater than left. 2. 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 3. Stenosis of the right external carotid artery estimated at 50-70%. 4. Borderline stenosis of the left external carotid artery estimated at approximately 50%. Assessment: 78 yr old man s/p recent RCA stenting with a brief event of tonicity with gaze deviation associated with hypotension. Possible brief hypoperfusion. Neurological exam and imaging reassuring. Recommendations: Patient is on maximum medical therapy with Brilinta and ASA Discussed with patient that should event recur or last longer or with associated symptoms of aphasia, focal weakness to seek emergency medical attention. Thank you for including me in the care of this patient. Case discussed with treatment team. As per protocol, I discussed available results of testing and plan of care with the patient or advocate, who agrees to the plan. Face time for evaluation, education, counseling was >50% of time spent on unit: for 35 minutes.
[2018-06-27] MEDS ORDERED: Potassium Chloride LIQUID* 20 MEQ PACKET PO ONE (13:00)
[2018-06-27] MEDS ORDERED: NS 0.45% KCl 20 Meq 1000 ML* 1,000 ML IV SCH (13:00)
[2018-06-27] MEDS ORDERED: Atorvastatin* 40 MG TAB PO SCH (17:00)
[2018-06-27] MEDS ORDERED: Nitro Patch/OINT Remove PATCH OFF SCH (21:00)
[2018-06-28 06:02] LABS: ABS Basophils 0 10^3/ul (0-0.2); ABS Eosinophils 0.2 10^3/ul (0-0.6); ABS Lymphocytes 0.8 10^3/ul (1.0-4.8); ABS Monocytes 0.4 10^3/ul (0-0.8); ABS Neutrophils 2.9 10^3/ul (1.5-7.7); ABS Nucleated RBC 0 10^3/ul; Eosinophil % 3.8 %; Hematocrit 37 % (42-52); Hemoglobin 12.7 g/dl (14.0-18.0); Lymphocyte % 18.8 %; Mean Corpuscular HGB Conc 34 g/dl (31-36); Mean Corpuscular Hemoglobin 32 pg (27-31); Mean Corpuscular Volume 95 fL (80-94); Mean Platelet Volume 8.1 fL (7.4-10.4); Nucleated Red Blood Cells % 0.1; Platelet Count 200 10^3/ul (150-450); Red Blood Count 3.92 10^6/ul (4.00-5.40); Red Cell Distribution Width 13 % (10.5-15); White Blood Count 4.3 10^3/ul (3.5-10.8)
[2018-06-28 06:21] LABS: Albumin 3.2 g/dL (3.2-5.2); Albumin/Globulin Ratio 1.1 (1-3); BUN/Creatinine Ratio 16.7 (8-20); Calcium 8.9 mg/dL (8.6-10.3); EGFR Non-African American 81.6 (>60); Globulin 2.8 g/dL (2-4); Potassium 4.1 mmol/L (3.5-5.0); Total Bilirubin 0.6 mg/dL (0.2-1.0)
[2018-06-28] MEDS: Ticagrelor* 90 MG TAB PO SCH (08:19)
[2018-06-28] MEDS: Aspirin EC TAB* 81 MG TAB.EC PO SCH (08:19)
[2018-06-28] MEDS: Tamsulosin CAP* 0.4 MG PO SCH (08:19)
[2018-06-28] MEDS: Metoprolol Succinate XL TAB* 25 MG PO SCH (08:19)
[2018-06-28] MEDS ORDERED: Ferrous Sulfate TAB* 325 MG PO SCH (10:00)
[2018-06-28 11:02] VITALS: BP 134/81
[2018-06-28 12:13] LABS: Folate 18.97 ng/mL (>3.99)
--- NOTE | 2018-06-28 13:01 | PN ---
Progress Note - Progress Note Date of Service: 06/28/18 Note: Time spent on discharge including exam of patient, discussion with patient, nurse, CM, Dr. Denny, cardiology LYNDA, review of EMR and preparation of discharge documents 40 minutes.
--- NOTE | 2018-06-28 15:58 | DS ---
CC: Dr. Brooks; Dr. Denny* DISCHARGE SUMMARY: DATE OF ADMISSION: 06/23/18 DATE OF DISCHARGE: 06/28/18 HOSPITAL COURSE: This 78-year-old man presented with shortness of breath and chest pain. He had 3 weeks of worsening chest pain, mainly on exertion. He also got short of breath with this. He did not have nitroglycerin at home. He took some extra aspirin. The patient was admitted with suspected acute coronory syndrome. He underwent cardiac catheterization. He had an ulcerated lesion on the right coronary artery, which was stented. He had a calcified smooth lesion in the left anterior descending artery, which appeared chronic and was not stented. The patient did well in the hospital. After 3 doses of atorvastatin 40 mg, he did have some liver function elevations. He has been lowered to 20 mg daily. He was given beta-matilde, aspirin, and ticagrelor. He is being referred for outpatient possible atherectomy with stenting at a higher level cardiac facility. FINAL DIAGNOSIS: Acute coronary syndrome. MEDICATIONS ON DISCHARGE: 1. Atorvastatin 20 mg daily at 5 p.m. 2. Ferrous sulfate 325 mg daily. 3. Metoprolol succinate 25 mg daily. 4. Nitroglycerin 0.4 mg sublingual every 5 minutes p.r.n. 5. Ticagrelor 90 mg b.i.d. 6. Tamsulosin 0.4 mg daily. 7. Aspirin 81 mg daily. The patient will have a CBC and CMP on 07/03/18. CONDITION ON DISCHARGE: Stable. DISPOSITION ON DISCHARGE: Discharged home. [id number]/[facility] #: [id number] MTDD
[2018-06-28] MEDS ORDERED: Atorvastatin* 20 MG TAB PO SCH (17:00)
== END 2018-06-28 14:30 | disposition home or self-care (01) | DRG 247 ==
LOC: ED 12:09 → MEDTELE 15:41 → ICU 06-26 11:44
PROVIDERS: ADMIT Hospitalist; ATTEND Internal Medicine
PROC: 027034Z Dilation of Coronary Artery, One Artery with Drug-eluting Intraluminal Device, Percutaneous Approach (ICD-10-PCS; principal; 2018-06-23)
PROC: B2111ZZ Fluoroscopy of Multiple Coronary Arteries using Low Osmolar Contrast (ICD-10-PCS; 2018-06-23)
PROC: 4A033BC Measurement of Arterial Pressure, Coronary, Percutaneous Approach (ICD-10-PCS; 2018-06-23)
DX: I24.9 Acute ischemic heart disease, unspecified (principal); I95.9 Hypotension, unspecified; M54.9 Dorsalgia, unspecified; I10 Essential (primary) hypertension; I25.110 Atherosclerotic heart disease of native coronary artery with unstable angina pectoris; Z79.82 Long term (current) use of aspirin; Z87.442 Personal history of urinary calculi; Z82.49 Family history of ischemic heart disease and other diseases of the circulatory system; Z83.3 Family history of diabetes mellitus; Z72.89 Other problems related to lifestyle
CPT/HCPCS: 36415; 70450; 71045; 76937; 80048; 80053; 80061; 82550; 82553; 82607; 82728; 82746; 83540; 83550; 83605; 83735; 84443; 84484; 85025; 85379; 85610; 93005; 93306; 93454; 93880; 99282; A9270-GY; C1725; C1760; C1769; C1876; C1887; C9600-RC; J0153; J1644; J1650; J2250; J3010; J3490